=== PATIENT | female | born 1940 | race Caucasian/White ===

== ENCOUNTER → 2023-03-28 11:47 | Outpatient (REF) | payer MEDICARE, OTHER, SELFPAY ==
[2023-03-28 13:14] LABS: % Basophils 0.5 % (0-2); % Immature Granulocytes 0.3 % (0-0.5); % Lymphocytes 26.1 % (20.5-51.1); % Monocytes 7.6 % (1.7-9.3); % Neutrophils 61.5 % (42.2-75.2); Absolute Eosinophils 0.2 10^3/uL (0-0.7); Absolute Lymphocytes 1.6 10^3/uL (1.2-3.4); Absolute Monocytes 0.5 10^3/uL (0.1-0.6); Absolute Neutrophils 3.7 10^3/uL (1.4-6.5); Hematocrit 36.4 % (37.0-47.0); Hemoglobin 11.7 g/dL (12.0-16.0); Mean Corp Hgb Conc. 32.1 g/dL (33.0-37.0); Mean Corpuscular Hgb 31.4 pg (27.0-31.0); Mean Corpuscular Volume 97.6 fL (81.0-99.0); Nucleated Red Blood Cells % 0 %; Platelet Count 170 10^3/uL (130-400); Red Blood Cell Count 3.73 10^6/uL (4.20-5.40); Red Cell Dist. Width 13.2 % (11.5-14.5); White Blood Cell Count 6.1 10^3/uL (4.8-10.8)
[2023-03-28 13:16] LABS: Microalbumin, Random Urine <0.6 mg/dl (0.6-1.7)
[2023-03-28 13:23] LABS: ALT (SGPT) 15 U/L (0-35); AST (SGOT) 24 U/L (14-36); Albumin 3.4 g/dl (3.5-5.0); Alkaline Phosphatase 78 U/L (38-126); Blood Urea Nitrogen 21 mg/dl (7-17); Calcium 9.3 mg/dl (8.4-10.2); Carbon Dioxide 28 mmol/L (22-30); Chloride 103 mmol/L (98-107); Glucose 122 mg/dl (70-99); HDL Cholesterol 44 mg/dl; Iron 88 ug/dl (37-170); LDL Cholesterol, Calculated 77 mg/dl; Potassium 4.2 mmol/L (3.5-5.1); Sodium 139 mmol/L (135-145); Total Bilirubin 0.6 mg/dl (0.2-1.3); Total Cholesterol 158 mg/dl (50-199); Total Protein 5.7 g/dl (6.3-8.2); Triglyceride 188 mg/dl (10-149); Very Low Density Lipoprotein 37 mg/dl (0-30); eGFR 50.17
[2023-03-28 13:35] LABS: Percent Saturation 27 % (20-50); Total Iron Binding Capacity 315 ug/dl (265-497)
[2023-03-28 13:54] LABS: TSH Reflex To Free T4 1.51 uIU/ml (0.47-4.68)
[2023-03-29 09:14] LABS: Intact PTH 98.9 pg/ml (13.6-85.8)
== END ==
LOC: OLABPV 11:47
PROVIDERS: ATTENDING PHYSICIAN Internal Medicine Rheumatology; FAMILY PHYSICIAN Internal Medicine
DX: D64.9 Anemia, unspecified (principal); M06.00 Rheumatoid arthritis without rheumatoid factor, unspecified site; E11.69 Type 2 diabetes mellitus with other specified complication; N25.81 Secondary hyperparathyroidism of renal origin; E78.00 Pure hypercholesterolemia, unspecified; E03.9 Hypothyroidism, unspecified
CPT/HCPCS: 36415; 80053; 80061; 82043; 82570; 82728; 83036; 83540; 83550; 83970; 84443; 85025

== ENCOUNTER 2023-04-04 10:42 | Emergency (ER) | payer MEDICARE, OTHER, SELFPAY ==
[2023-04-04 10:45] VITALS: BP 143/68
--- NOTE | 2023-04-04 12:15 | ED.GENMED ---
History of Present Illness
General
Chief Complaint: Back Pain
Source: patient
Time Seen by Provider: 04/04/23 12:02
Travel History
Have you had any contact with someone who has COVID-19?: No
Do you have any symptoms of coronavirus? Fever > 100 degrees, chills, cough, shortness of breath, sore throat, loss of taste or smell, muscle aches, or headache?: No
History of Present Illness
History of Present Illness:
82-year-old female insulin-dependent diabetic presents with 3 to 4 days worth of worsening lower back pain that radiates down the right leg. No associated bowel or bladder dysfunction. No fever. No perianal anesthesia. She has a history of a
laminectomy at an unknown level she estimates about 15 years ago which was done in [facility]. No other complaints at this time.
Phy Exam
Physical Exam
Physical Exam:
General: Well-appearing female no acute respiratory distress
HEENT: Normocephalic atraumatic neck is supple heart: Regular rate and rhythm no murmurs
Lungs: Clear to auscultation bilaterally no wheezing
Musculoskeletal exam: Mild tenderness to the right paraspinous area of the lumbar spine good range of motion bilateral lower extremities
Vascular: 2+ dorsalis pedis pulse bilateral feet
Neurologic: Bilateral patellar reflexes 2+. Negative straight leg raise bilaterally good strength to lower extremities. Good sensation lower extremities
Course
Orders/Labs/Results
Orders:
Orders
04/04/23 12:15
CR Lumbar Spine 2 Or 3 Views Urgent
Comment:
Reason For Exam: back pain
04/04/23 14:03
PT Consult [Pt Eval And Treat] Urgent
Activity Level: Ambulate
Vital Signs
Initial and Last Documented VS:
Initial Vital Signs
Temp Pulse Resp BP Pulse Ox
97.9 F 72 18 143/68 95
04/04/23 10:45 04/04/23 10:45 04/04/23 10:45 04/04/23 10:45 04/04/23 10:45
Last Documented Vital Signs
Temp Pulse Resp BP Pulse Ox
97.9 F 72 18 143/68 95
04/04/23 10:45 04/04/23 10:45 04/04/23 10:45 04/04/23 10:45 04/04/23 10:45
MDM/Problems Addressed
Differential Diagnosis Includes:
Low back pain with right leg pain. Consider degenerative disc disease versus radiculopathy. No fever to suggest infectious source. Does not seem to be a vascular issue
Check x-rays of the lumbar spine given age. Will plan on potentially starting on anti-inflammatories and/or pain medicine with physiatry follow-up
*Critical Care Note
Total Time (30-74mins, 75-104mins- exclusive of procedures): Not Applicable
Update Note
Update Note:
X-rays show multiple compression deformities of uncertain age. Spoke with patient's daughter who is a vascular surgeon in [place]. Suspect radiculopathy. Patient evaluated by physical therapy and did well. She is independent at [place] but
still is able to function independently per physical therapy. Recommend follow-up with Dr. Gaviria from orthopedics for further evaluation
ED Attending Note
-
Portions of this chart may have been created with voice recognition software.� Occasional wrong word or��sound alike� substitutions may have occurred due to the inherent limitations of voice recognition software.
Discharge Plan
Departure
Patient Disposition: Home (Routine Discharge)
Date of Disposition: 04/04/23
Time of Disposition: 14:55
Patient with high blood pressure during this ER visit?: No
Discharge Problem:
Acute lumbar radiculopathy
Instructions: Low Back Pain (DC)
Prescriptions:
No Action
levothyroxine 100 MCG tablet
100 mcg PO DAILY
cetirizine 10 MG tablet
10 mg PO DAILY Qty: 0 0RF
pantoprazole 40 MG tablet,delayed release (DR/EC)
40 mg PO DAILY
Caltrate 600 plus D 1 EACH tablet,chewable
1 tab PO BID
Patient Comments:
600/400
cholecalciferol (vitamin D3) 2,000 UNIT tablet
1,000 unit PO DAILY
cyanocobalamin (vitamin B-12) 1,000 MCG capsule
1,000 mcg PO QPM
atorvastatin 80 mg tablet
80 mg PO QPM
carvedilol 25 mg tablet
25 mg PO BID
leflunomide 10 mg tablet
10 mg PO DAILY
aspirin 81 mg tablet,chewable
81 mg PO QPM
insulin glargine [Lantus Solostar U-100 Insulin] 100 unit/mL (3 mL) insulin pen
12 unit SC HS
Prolia 60 mg/mL Syringe
60 mg SC [id number]
Arnuity Ellipta 100 mcg/actuation blister with device
1 inh INHALATION R DAILY
Trulicity 0.75 mg/0.5 mL pen injector
0.75 mg SC SA
Folate
1 mg PO DAILY
fluoxetine 20 MG capsule
20 mg PO QPM
clopidogrel [Plavix] 75 mg Tablet
75 mg PO DAILY
glipizide 5 mg Tablet
5 mg PO BID
ferrous sulfate 134 mg (27 mg iron) Tablet
134 mg PO DAILY
Cozaar
100 mg PO DAILY
Referrals:
Telly Gaviria DO [Non-Admitting Privileges] -
Billie Restrepo MD [Family Provider] -
Activity Restrictions/Additional Instructions:
Continue with ibuprofen if needed for pain. Follow-up with orthopedics. Return if worse otherwise. Use walker for support when ambulating
Interventions
Interventions:
*Risk Screen - Suicide Last Done: 04/04/23 10:45
*General Assessment Last Done: 04/04/23 10:45
*Neglect/Abuse Screening Last Done: 04/04/23 10:45
*ED COVID-19 Vaccine History Last Done: 04/04/23 10:45
ED-Musculoskeletal Assessment Last Done: 04/04/23 11:19
[2023-04-04 15:17] VITALS: BP 152/77
== END 2023-04-04 15:20 | disposition home or self-care (01) ==
LOC: EMR 10:42
PROVIDERS: EMERGENCY PHYSICIAN Emergency Medicine; FAMILY PHYSICIAN Family Medicine
DX: M47.26 Other spondylosis with radiculopathy, lumbar region (principal); M79.604 Pain in right leg; E11.9 Type 2 diabetes mellitus without complications; Z79.4 Long term (current) use of insulin; Z79.82 Long term (current) use of aspirin; Z79.02 Long term (current) use of antithrombotics/antiplatelets; Z88.8 Allergy status to other drugs, medicaments and biological substances
CPT/HCPCS: 99283; 72100

== ENCOUNTER → 2023-05-15 11:55 | Outpatient (REF) | payer MEDICARE, OTHER, SELFPAY | LOC: MRI 11:55 | PROVIDERS: ATTENDING PHYSICIAN Physical Medicine & Rehabilitation; FAMILY PHYSICIAN Family Medicine; REFERRING PHYSICIAN Radiology Diagnostic Radiology | DX: M54.16 Radiculopathy, lumbar region (principal); Z18.10 Retained metal fragments, unspecified | CPT/HCPCS: 71046; 72148 ==

== ENCOUNTER → 2023-05-28 14:31 | Outpatient (REF) | payer MEDICARE, OTHER, SELFPAY | LOC: WDC 14:31 | PROVIDERS: ATTENDING PHYSICIAN Internal Medicine | DX: Z12.31 Encounter for screening mammogram for malignant neoplasm of breast (principal) | CPT/HCPCS: 77063; 77067 ==

== ENCOUNTER → 2023-07-16 09:28 | Outpatient (REF) | payer MEDICARE, OTHER, SELFPAY ==
[2023-07-16 10:53] LABS: % Basophils 0.6 % (0-2); % Eosinophils 5.7 % (0-6); % Immature Granulocytes 0.2 % (0-0.5); % Lymphocytes 32.7 % (20.5-51.1); % Monocytes 8.4 % (1.7-9.3); % Neutrophils 52.4 % (42.2-75.2); Absolute Eosinophils 0.3 10^3/uL (0-0.7); Absolute Lymphocytes 1.7 10^3/uL (1.2-3.4); Absolute Monocytes 0.4 10^3/uL (0.1-0.6); Absolute Neutrophils 2.8 10^3/uL (1.4-6.5); Hematocrit 33.7 % (37.0-47.0); Hemoglobin 10.7 g/dL (12.0-16.0); Mean Corp Hgb Conc. 31.8 g/dL (33.0-37.0); Mean Corpuscular Hgb 30.8 pg (27.0-31.0); Mean Corpuscular Volume 97.1 fL (81.0-99.0); Mean Platelet Volume 11.5 fL (7.4-10.4); Nucleated Red Blood Cells % 0 %; Platelet Count 170 10^3/uL (130-400); Red Blood Cell Count 3.47 10^6/uL (4.20-5.40); Red Cell Dist. Width 13.6 % (11.5-14.5); White Blood Cell Count 5.3 10^3/uL (4.8-10.8)
[2023-07-16 12:40] LABS: ALT (SGPT) 17 U/L (0-35); AST (SGOT) 25 U/L (14-36); Albumin 3.4 g/dl (3.5-5.0); Alkaline Phosphatase 83 U/L (38-126); Blood Urea Nitrogen 16 mg/dl (7-17); Calcium 9.2 mg/dl (8.4-10.2); Carbon Dioxide 26 mmol/L (22-30); Chloride 109 mmol/L (98-107); Glucose 103 mg/dl (70-99); Potassium 4.3 mmol/L (3.5-5.1); Sodium 141 mmol/L (135-145); Total Bilirubin 0.3 mg/dl (0.2-1.3); Total Protein 5.7 g/dl (6.3-8.2); Uric Acid 4.9 mg/dl (2.5-6.2); eGFR 50.17
[2023-07-16 12:44] LABS: C-Reactive Protein < 5.00 mg/L (0.0-10.00)
[2023-07-16 13:01] LABS: Vitamin D, 25-OH*** 42.7 ng/mL (30-80)
== END ==
LOC: OLABPV 09:28
PROVIDERS: ATTENDING PHYSICIAN Internal Medicine Rheumatology; FAMILY PHYSICIAN Family Medicine
DX: D64.9 Anemia, unspecified (principal); E55.9 Vitamin D deficiency, unspecified; M06.00 Rheumatoid arthritis without rheumatoid factor, unspecified site; M10.9 Gout, unspecified; M19.93 Secondary osteoarthritis, unspecified site; M79.641 Pain in right hand; M81.0 Age-related osteoporosis without current pathological fracture; N25.81 Secondary hyperparathyroidism of renal origin; Z68.30 Body mass index [BMI] 30.0-30.9, adult; Z79.899 Other long term (current) drug therapy
CPT/HCPCS: 36415; 80053; 82306; 84550; 85025; 86140

== ENCOUNTER → 2023-09-05 11:20 | Outpatient (REF) | payer MEDICARE, OTHER, SELFPAY ==
[2023-09-05 12:35] LABS: % Basophils 0.7 % (0-2); % Eosinophils 4.6 % (0-6); % Immature Granulocytes 0.5 % (0-0.5); % Lymphocytes 23.8 % (20.5-51.1); % Monocytes 8.5 % (1.7-9.3); % Neutrophils 61.9 % (42.2-75.2); Absolute Eosinophils 0.3 10^3/uL (0-0.7); Absolute Lymphocytes 1.5 10^3/uL (1.2-3.4); Absolute Monocytes 0.5 10^3/uL (0.1-0.6); Absolute Neutrophils 3.8 10^3/uL (1.4-6.5); Hemoglobin 9.7 g/dL (12.0-16.0); Mean Corp Hgb Conc. 32.3 g/dL (33.0-37.0); Mean Corpuscular Hgb 31.1 pg (27.0-31.0); Mean Corpuscular Volume 96.2 fL (81.0-99.0); Nucleated Red Blood Cells % 0 %; Platelet Count 193 10^3/uL (130-400); Red Blood Cell Count 3.12 10^6/uL (4.20-5.40); White Blood Cell Count 6.1 10^3/uL (4.8-10.8)
[2023-09-05 12:50] LABS: Blood Urea Nitrogen 27 mg/dl (7-17); Calcium 9.2 mg/dl (8.4-10.2); Carbon Dioxide 25 mmol/L (22-30); Chloride 106 mmol/L (98-107); Glucose 154 mg/dl (70-99); Iron 89 ug/dl (37-170); Potassium 4.5 mmol/L (3.5-5.1); Sodium 137 mmol/L (135-145); eGFR 49.86
[2023-09-05 13:00] LABS: Percent Saturation 26 % (20-50); Total Iron Binding Capacity 342 ug/dl (265-497)
[2023-09-06 10:20] LABS: Glycohemoglobin (HgbA1c) 6.5 % (4.0-5.6)
== END ==
LOC: OLABPV 11:20
PROVIDERS: ATTENDING PHYSICIAN Internal Medicine Rheumatology
DX: D64.9 Anemia, unspecified (principal); E55.9 Vitamin D deficiency, unspecified; M06.00 Rheumatoid arthritis without rheumatoid factor, unspecified site; M10.9 Gout, unspecified; M19.93 Secondary osteoarthritis, unspecified site; M79.641 Pain in right hand; M81.0 Age-related osteoporosis without current pathological fracture; N25.81 Secondary hyperparathyroidism of renal origin; Z79.899 Other long term (current) drug therapy
CPT/HCPCS: 80048; 82728; 83036; 83540; 83550; 85025

== ENCOUNTER → 2023-09-30 11:21 | Outpatient (REF) | payer MEDICARE, OTHER, SELFPAY | LOC: DHCBC/DCA 11:21 | PROVIDERS: ATTENDING PHYSICIAN Internal Medicine Cardiovascular Disease; FAMILY PHYSICIAN Family Medicine | DX: R06.02 Shortness of breath (principal) | CPT/HCPCS: 78452; 93017; A9500; J2785 ==

== ENCOUNTER → 2023-10-17 10:54 | Outpatient (REF) | payer MEDICARE, OTHER, SELFPAY ==
[2023-10-17 11:33] LABS: % Basophils 0.6 % (0-2); % Eosinophils 4.7 % (0-6); % Immature Granulocytes 0.3 % (0-0.5); % Lymphocytes 26.3 % (20.5-51.1); % Monocytes 9.2 % (1.7-9.3); % Neutrophils 58.9 % (42.2-75.2); Absolute Eosinophils 0.3 10^3/uL (0-0.7); Absolute Lymphocytes 1.6 10^3/uL (1.2-3.4); Absolute Monocytes 0.6 10^3/uL (0.1-0.6); Absolute Neutrophils 3.6 10^3/uL (1.4-6.5); Hemoglobin 10.8 g/dL (12.0-16.0); Mean Corp Hgb Conc. 31.8 g/dL (33.0-37.0); Mean Corpuscular Hgb 30.8 pg (27.0-31.0); Mean Corpuscular Volume 96.9 fL (81.0-99.0); Mean Platelet Volume 11.3 fL (7.4-10.4); Nucleated Red Blood Cells % 0 %; Platelet Count 184 10^3/uL (130-400); Red Blood Cell Count 3.51 10^6/uL (4.20-5.40); Red Cell Dist. Width 14.6 % (11.5-14.5); White Blood Cell Count 6.2 10^3/uL (4.8-10.8)
[2023-10-17 11:43] LABS: Iron 56 ug/dl (37-170)
[2023-10-17 12:14] LABS: TSH 0.69 uIU/ml (0.47-4.68)
[2023-10-17 12:18] LABS: Ferritin 21.2 ng/ml (11.1-264.0)
[2023-10-17 12:20] LABS: Microalbumin, Random Urine 1.9 mg/dl (0.6-1.7)
== END ==
LOC: OLABPV 10:54
PROVIDERS: ATTENDING PHYSICIAN Family Medicine
DX: D64.9 Anemia, unspecified (principal); E11.9 Type 2 diabetes mellitus without complications
CPT/HCPCS: 36415; 82043; 82570; 82728; 83540; 84443; 85025

== ENCOUNTER → 2023-10-30 13:19 | Outpatient (REF) | payer MEDICARE, OTHER, SELFPAY | LOC: RCS 13:19 | PROVIDERS: ATTENDING PHYSICIAN Nurse Practitioner; FAMILY PHYSICIAN Internal Medicine Geriatric Medicine | DX: I25.10 Atherosclerotic heart disease of native coronary artery without angina pectoris (principal); R01.1 Cardiac murmur, unspecified; I10 Essential (primary) hypertension | CPT/HCPCS: 93306 ==

== ENCOUNTER → 2023-11-11 10:21 | Outpatient (REF) | payer MEDICARE, OTHER, SELFPAY ==
[2023-11-11 11:47] LABS: % Basophils 0.5 % (0-2); % Eosinophils 5.4 % (0-6); % Immature Granulocytes 0.2 % (0-0.5); % Monocytes 10.3 % (1.7-9.3); % Neutrophils 48.6 % (42.2-75.2); Absolute Eosinophils 0.3 10^3/uL (0-0.7); Absolute Monocytes 0.6 10^3/uL (0.1-0.6); Absolute Neutrophils 2.8 10^3/uL (1.4-6.5); Hematocrit 35.3 % (37.0-47.0); Hemoglobin 11.4 g/dL (12.0-16.0); Mean Corp Hgb Conc. 32.3 g/dL (33.0-37.0); Mean Corpuscular Hgb 30.2 pg (27.0-31.0); Mean Corpuscular Volume 93.6 fL (81.0-99.0); Mean Platelet Volume 11.5 fL (7.4-10.4); Nucleated Red Blood Cells % 0 %; Platelet Count 160 10^3/uL (130-400); Red Blood Cell Count 3.77 10^6/uL (4.20-5.40); Red Cell Dist. Width 13.5 % (11.5-14.5); White Blood Cell Count 5.8 10^3/uL (4.8-10.8)
[2023-11-11 13:05] LABS: ALT (SGPT) 18 U/L (0-35); AST (SGOT) 24 U/L (14-36); Albumin 3.7 g/dl (3.5-5.0); Alkaline Phosphatase 103 U/L (38-126); Blood Urea Nitrogen 20 mg/dl (7-17); Calcium 9.3 mg/dl (8.4-10.2); Carbon Dioxide 23 mmol/L (22-30); Chloride 108 mmol/L (98-107); Glucose 173 mg/dl (70-99); Sodium 142 mmol/L (135-145); Total Bilirubin 0.3 mg/dl (0.2-1.3); Total Protein 5.9 g/dl (6.3-8.2)
== END ==
LOC: OLABPV 10:21
PROVIDERS: ATTENDING PHYSICIAN Dentist Oral and Maxillofacial Surgery; FAMILY PHYSICIAN Family Medicine; REFERRING PHYSICIAN Internal Medicine Rheumatology
DX: M87.180 Osteonecrosis due to drugs, jaw (principal); D64.9 Anemia, unspecified; E55.9 Vitamin D deficiency, unspecified; M06.00 Rheumatoid arthritis without rheumatoid factor, unspecified site; M10.9 Gout, unspecified; M19.93 Secondary osteoarthritis, unspecified site; M79.641 Pain in right hand; M81.0 Age-related osteoporosis without current pathological fracture; N25.81 Secondary hyperparathyroidism of renal origin; Z79.899 Other long term (current) drug therapy
CPT/HCPCS: 36415; 70486; 80053; 84550; 85025; 86140

== ENCOUNTER → 2023-11-21 12:21 | Outpatient (REF) | payer MEDICARE, OTHER, SELFPAY ==
[2023-11-21 13:18] LABS: % Basophils 0.9 % (0-2); % Eosinophils 5.7 % (0-6); % Immature Granulocytes 0.4 % (0-0.5); % Lymphocytes 28.5 % (20.5-51.1); % Monocytes 10.5 % (1.7-9.3); Absolute Basophils 0.1 10^3/uL (0-0.2); Absolute Eosinophils 0.3 10^3/uL (0-0.7); Absolute Lymphocytes 1.5 10^3/uL (1.2-3.4); Absolute Monocytes 0.6 10^3/uL (0.1-0.6); Absolute Neutrophils 2.9 10^3/uL (1.4-6.5); Hematocrit 32.9 % (37.0-47.0); Hemoglobin 10.5 g/dL (12.0-16.0); Mean Corp Hgb Conc. 31.9 g/dL (33.0-37.0); Mean Corpuscular Hgb 28.6 pg (27.0-31.0); Mean Corpuscular Volume 89.6 fL (81.0-99.0); Mean Platelet Volume 11.1 fL (7.4-10.4); Nucleated Red Blood Cells % 0 %; Platelet Count 165 10^3/uL (130-400); Red Blood Cell Count 3.67 10^6/uL (4.20-5.40); Red Cell Dist. Width 13.5 % (11.5-14.5); White Blood Cell Count 5.4 10^3/uL (4.8-10.8)
[2023-11-21 13:36] LABS: ALT (SGPT) 14 U/L (0-35); AST (SGOT) 21 U/L (14-36); Albumin 3.4 g/dl (3.5-5.0); Alkaline Phosphatase 97 U/L (38-126); Blood Urea Nitrogen 20 mg/dl (7-17); Calcium 9.2 mg/dl (8.4-10.2); Carbon Dioxide 23 mmol/L (22-30); Chloride 107 mmol/L (98-107); Glucose 147 mg/dl (70-99); HDL Cholesterol 38 mg/dl; Iron 53 ug/dl (37-170); LDL Cholesterol, Calculated 73 mg/dl; Potassium 4.6 mmol/L (3.5-5.1); Sodium 142 mmol/L (135-145); Total Bilirubin 0.1 mg/dl (0.2-1.3); Total Cholesterol 140 mg/dl (50-199); Total Protein 5.7 g/dl (6.3-8.2); Triglyceride 145 mg/dl (10-149); Very Low Density Lipoprotein 29 mg/dl (0-30)
[2023-11-21 13:40] LABS: Urine Albumin Negative (Neg - Trace); Urine Bilirubin Negative (Negative); Urine Character Clear (Clear); Urine Color Yellow; Urine Glucose Negative (Negative); Urine Ketone Negative (Negative); Urine Leukocyte 2+ (Negative); Urine Nitrite Negative (Negative); Urine Occult Blood Negative (Negative); Urine Urobilinogen Negative (Neg - 1+)
[2023-11-21 13:45] LABS: Percent Saturation 15 % (20-50); Total Iron Binding Capacity 344 ug/dl (265-497)
[2023-11-21 13:51] LABS: Vitamin D, 25-OH*** 39.6 ng/mL (30-80)
[2023-11-21 14:04] LABS: TSH 0.91 uIU/ml (0.47-4.68)
[2023-11-21 14:08] LABS: Ferritin 17.2 ng/ml (11.1-264.0)
[2023-11-21 14:13] LABS: Urine Squamous Cell >30 /LPF (Few)
[2023-11-21 14:14] LABS: Urine White Cell 70-80 /HPF (0-5)
[2023-11-21 14:15] LABS: Urine Bacteria Moderate (Negative)
[2023-11-21 14:16] LABS: Urine Red Blood Cell None Seen /HPF (0-2)
[2023-11-22 10:14] LABS: Glycohemoglobin (HgbA1c) 7.8 % (4.0-5.6)
[2023-11-24 00:31] LABS: C-Peptide 1.5 ng/mL (0.5-3.3)
== END ==
LOC: OLABPV 12:21
PROVIDERS: ATTENDING PHYSICIAN Internal Medicine Geriatric Medicine
DX: Z76.89 Persons encountering health services in other specified circumstances (principal); F33.41 Major depressive disorder, recurrent, in partial remission; E03.9 Hypothyroidism, unspecified; E11.65 Type 2 diabetes mellitus with hyperglycemia; E61.1 Iron deficiency; M81.0 Age-related osteoporosis without current pathological fracture; Z79.4 Long term (current) use of insulin; K21.9 Gastro-esophageal reflux disease without esophagitis; M06.042 Rheumatoid arthritis without rheumatoid factor, left hand; I25.10 Atherosclerotic heart disease of native coronary artery without angina pectoris; Z13.31 Encounter for screening for depression
CPT/HCPCS: 36415; 80053; 80061; 81003; 81015; 82306; 82728; 83036; 83540; 83550; 84443; 84681; 85025

== ENCOUNTER → 2023-12-19 08:37 | Outpatient (REF) | payer MEDICARE, OTHER, SELFPAY | LOC: RAD 08:37 | PROVIDERS: ATTENDING PHYSICIAN Internal Medicine Rheumatology; FAMILY PHYSICIAN Internal Medicine Geriatric Medicine | DX: M81.0 Age-related osteoporosis without current pathological fracture (principal); Z13.820 Encounter for screening for osteoporosis | CPT/HCPCS: 77080 ==

== ENCOUNTER 2023-12-28 17:13 | Inpatient (IN) | payer MEDICARE, OTHER, SELFPAY ==
[2023-12-28 10:42] VITALS: BP 159/75
[2023-12-28 11:03] VITALS: BP 158/77
--- NOTE | 2023-12-28 11:06 | W.PN.UPDATE ---
Update Note
Progress Note Update
Daughter, a vascular surgeon in [facility], called with information about patient. She had total hip w. Dr. Thomson 10 yrs ago, doing well, developed jaw infection pending debridement and has started having pain in her CHRISTIANA. Concern is for hip infection.
I believe pt will be coming to ER today. I would start out by ordering sed rate, crp, full set of labs, type and screen and then likely set patient up for aspiration of the affected hip by IR.
Please withhold any antibiotics until aspiration is performed to maximize culture. Pt may eat today while workup done but should be NPO p mn in the event surgery indicated.
Daughter's phone number is [phone]
[2023-12-28 11:40] LABS: % Basophils 0.7 % (0-2); % Eosinophils 5.9 % (0-6); % Immature Granulocytes 0.4 % (0-0.5); % Lymphocytes 18.3 % (20.5-51.1); % Neutrophils 67.7 % (42.2-75.2); Absolute Basophils 0.1 10^3/uL (0-0.2); Absolute Eosinophils 0.4 10^3/uL (0-0.7); Absolute Lymphocytes 1.3 10^3/uL (1.2-3.4); Absolute Monocytes 0.5 10^3/uL (0.1-0.6); Absolute Neutrophils 4.8 10^3/uL (1.4-6.5); Hematocrit 39.7 % (37.0-47.0); Hemoglobin 12.8 g/dL (12.0-16.0); Mean Corp Hgb Conc. 32.2 g/dL (33.0-37.0); Mean Corpuscular Hgb 29.7 pg (27.0-31.0); Mean Corpuscular Volume 92.1 fL (81.0-99.0); Mean Platelet Volume 11.6 fL (7.4-10.4); Nucleated Red Blood Cells % 0 %; Platelet Count 156 10^3/uL (130-400); Red Blood Cell Count 4.31 10^6/uL (4.20-5.40); Red Cell Dist. Width 15.1 % (11.5-14.5); White Blood Cell Count 7.1 10^3/uL (4.8-10.8)
[2023-12-28 11:54] LABS: ALT (SGPT) 19 U/L (0-35); AST (SGOT) 27 U/L (14-36); Albumin 4.1 g/dl (3.5-5.0); Alkaline Phosphatase 102 U/L (38-126); Blood Urea Nitrogen 20 mg/dl (7-17); Calcium 9.9 mg/dl (8.4-10.2); Carbon Dioxide 25 mmol/L (22-30); Chloride 104 mmol/L (98-107); Glucose 252 mg/dl (70-99); Potassium 4.9 mmol/L (3.5-5.1); Sodium 140 mmol/L (135-145); Total Bilirubin 0.5 mg/dl (0.2-1.3); Total Protein 6.6 g/dl (6.3-8.2); eGFR 49.86
[2023-12-28 11:57] LABS: C-Reactive Protein < 5.00 mg/L (0.0-10.00)
[2023-12-28 12:58] LABS: Erythrocyte Sed Rate 30 mm/hour (0-20)
[2023-12-28] MEDS: MORPHINE SULFATE 4 MG IV (13:03)
[2023-12-28 14:53] VITALS: BP 122/78
--- NOTE | 2023-12-28 15:59 | ED.GENMED ---
History of Present Illness
General
Chief Complaint: Extremity Pain (non-traumatic)
Time Seen by Provider: 12/28/23 11:21
History of Present Illness
History of Present Illness:
83-year-old female presents the emergency department for evaluation of right hip pain. She has had this pain intermittently for the past 3 weeks but over the past day it became 'excruciating'. She is unable to bear weight on the right leg over the
past day. She has a history of a total hip replacement performed approximately 10 years ago, daughter notes that she has recently been dealing with dental infections and has been on antibiotics and they are concerned for prosthetic hip infection.
She communicated with orthopedics and was directed to come to the emergency department for workup. No fevers or night sweats
Review of Systems
Review of Systems
Allergies reviewed?: Yes
All Other Systems: ROS reviewed and negative except as documented in HPI and ROS
Phy Exam
Physical Exam
Physical Exam:
GEN: Well appearing, NAD, WDWN
HEENT: Oral mucosa moist, no scleral icterus
Cardiac: Regular rate
Lung: No respiratory distress, no tachypnea
MSK: No gross deformity or injuries. Right hip range of motion is normal with no pain on passive range of motion.
Skin: Good color, no pallor or jaundice, no rashes
Neuro: AO x3, moves all extremities freely
Psych: Calm, cooperative
Course
Orders/Labs/Results
Orders:
Orders
12/28/23 11:23
CR Hip - RT w/wo Pel 2-3 Vw* Urgent
Comment:
Reason For Exam: R hip pain
Include a pelvis x-ray?: No
12/28/23 11:31
CRP [C-Reactive Protein] Urgent
Complete Blood Count/With Diff Urgent
Comprehensive Metabolic Panel Urgent
ESR [Erythrocyte Sed Rate] Urgent
12/28/23 12:54
Morphine Sulfate 4 mg IV NOW STA
12/28/23 13:38
CT Lower Ext W/iv Cont Rt Urgent
Comment:
Reason For Exam: right hip pain poss infection
Abnormal Lab Results
12/28/23
11:31
MCHC 32.2 L g/dL
(33.0-37.0)
RDW 15.1 H %
(11.5-14.5)
MPV 11.6 H fL
(7.4-10.4)
Lymphocytes % 18.3 L %
(20.5-51.1)
ESR 30 H mm/hour
(0-20)
BUN 20 H mg/dl
(7-17)
Creatinine 1.1 H mg/dL
(0.6-1.0)
Glucose 252 H mg/dl
(70-99)
12/28/23 11:31
12/28/23 11:31
Vital Signs
Initial and Last Documented VS:
Initial Vital Signs
Temp Pulse Resp BP Pulse Ox
97.5 F 85 18 159/75 94
12/28/23 10:42 12/28/23 10:42 12/28/23 10:42 12/28/23 10:42 12/28/23 10:42
Last Documented Vital Signs
Temp Pulse Resp BP Pulse Ox
97.5 F 78 18 122/78 97
12/28/23 10:42 12/28/23 14:53 12/28/23 14:53 12/28/23 14:53 12/28/23 14:53
MDM/Problems Addressed
MDM/Problems Addressed:
Patient's workup for potential septic hip prosthesis is reassuring with negative inflammatory markers and CT showing no synovial thickening. Case reviewed with orthopedics who agrees there is no indication for IR aspiration at this time. Discussed
with patient and her daughter over the phone, concern for patient's safety given her pain and difficulty with ambulation given that she lives alone, will admit for observation and consideration of SNF placement
*Critical Care Note
Total Time (30-74mins, 75-104mins- exclusive of procedures): Not Applicable
ED Attending Note
-
Portions of this chart may have been created with voice recognition software.� Occasional wrong word or��sound alike� substitutions may have occurred due to the inherent limitations of voice recognition software.
Discharge Plan
Departure
Patient Disposition: Admit
Date of Disposition: 12/28/23
Time of Disposition: 16:06
Admit to: Med/Surg
Presentation/result/management discussed w/ accepting MD/DO: Hospitalist
Discharge Problem:
Ambulatory dysfunction, Lumbar radiculopathy, acute
Prescriptions:
No Action
levothyroxine 100 MCG tablet
100 mcg PO DAILY
cetirizine 10 MG tablet
10 mg PO DAILY Qty: 0 0RF
pantoprazole 40 MG tablet,delayed release (DR/EC)
40 mg PO DAILY
Caltrate 600 plus D 1 EACH tablet,chewable
1 tab PO BID
Patient Comments:
600/400
cholecalciferol (vitamin D3) 2,000 UNIT tablet
1,000 unit PO DAILY
cyanocobalamin (vitamin B-12) 1,000 MCG capsule
1,000 mcg PO QPM
atorvastatin 80 mg tablet
80 mg PO QPM
carvedilol 25 mg tablet
25 mg PO BID
leflunomide 10 mg tablet
10 mg PO DAILY
aspirin 81 mg tablet,chewable
81 mg PO QPM
insulin glargine [Lantus Solostar U-100 Insulin] 100 unit/mL (3 mL) insulin pen
12 unit SC HS
Prolia 60 mg/mL Syringe
60 mg SC [id number]
Arnuity Ellipta 100 mcg/actuation blister with device
1 inh INHALATION R DAILY
Trulicity 0.75 mg/0.5 mL pen injector
0.75 mg SC SA
Folate
1 mg PO DAILY
fluoxetine 20 MG capsule
20 mg PO QPM
clopidogrel [Plavix] 75 mg Tablet
75 mg PO DAILY
glipizide 5 mg Tablet
5 mg PO BID
ferrous sulfate 134 mg (27 mg iron) Tablet
134 mg PO DAILY
Cozaar
100 mg PO DAILY
Referrals:
Abdoulaye Mireles MD [Family Provider] -
Interventions
Interventions:
*Risk Screen - Suicide Last Done: 12/28/23 10:42
*General Assessment Last Done: 12/28/23 11:14
*Neglect/Abuse Screening Last Done: 12/28/23 10:42
ED- Fall Risk Assessment Last Done: 12/28/23 11:14
ED-Musculoskeletal Assessment Last Done: 12/28/23 11:14
Discharge Date and Time
Print Language: FRISIAN
--- NOTE | 2023-12-28 16:29 | HPS.HSE ---
Family Physician
-
Family Physician: Abdoulaye Mireles
Chief Complaint
-
Right hip pain
History of Present Illness
83-year-old female with a past medical history of iron deficiency anemia, coronary artery disease, AV block status post pacemaker, hyperlipidemia, rheumatoid arthritis, GERD, osteopenia, depression, hypothyroidism, and type 2 diabetes presents with
a 3-week history of right hip pain. Patient states that it started hurting only when she stands and walks, and was better initially. Then it worsened yesterday. She also reports associated right lower back pain. She has a history of total hip
replacement 10 years ago. She denies recent injury or trauma. Currently her pain is 0 at rest, 9 out of 10 in intensity with standing or walking. Denies chest pain, shortness of breath, or palpitations. No fever. No abdominal pain. No nausea,
no vomiting. Reports constipation. No dysuria, no hematuria.
Medical History
Past Medical History
Past Medical History: Reports Other (iron deficiency anemia, coronary artery disease, AV block status post pacemaker, hyperlipidemia, rheumatoid arthritis, GERD, osteopenia, depression, hypothyroidism, type 2 diabetes, TIA )
Past Surgical History: Reports Appendectomy, Cholecystectomy and Other (Bilateral hip replacement, right shoulder replacement, pacer)
Social History
Tobacco: Non-smoker
Alcohol: Daily (1 drink daily )
Drug: None
Personal:
Living: Alone
Family History
Family History: Not pertinent
Allergies / Home Medications
Allergies reflects when Allergies were last updated in [facility].
Home Medications with original date entered in [facility]
Allergy/Medication List:
Allergies
Allergy/AdvReac Type Severity Reaction Status Date / Time
DRE Inhibitors Allergy coughing Verified 02/22/22 14:44
Home Medications
levothyroxine 100 mcg tablet 100 mcg PO DAILY 04/27/13
cetirizine 10 mg tablet 10 mg PO DAILY ##0 05/20/13
pantoprazole 40 mg tablet,delayed release 40 mg PO DAILY 03/28/14
calcium carbonate 600 mg-vitamin D3 20 mcg (800 unit) chewable tablet (Caltrate 600 plus D) 1 tab PO BID 03/30/15
cholecalciferol (vitamin D3) 50 mcg (2,000 unit) tablet 1,000 unit PO DAILY 10/17/17
clopidogrel 75 mg tablet 75 mg PO QPM 10/17/17
cyanocobalamin (vitamin B-12) 1,000 mcg capsule 1,000 mcg PO QPM 10/17/17
Folate 1 mg PO DAILY 02/22/22
aspirin 81 mg chewable tablet 81 mg PO QPM 02/22/22
atorvastatin 80 mg tablet 80 mg PO QPM 02/22/22
carvedilol 25 mg tablet 25 mg PO BID 02/22/22
denosumab 60 mg/mL subcutaneous syringe (Prolia) 60 mg SC [id number] 02/22/22
dulaglutide 0.75 mg/0.5 mL subcutaneous pen injector (Trulicity) 0.75 mg SC SA 02/22/22
fluoxetine 20 mg capsule 20 mg PO QPM 02/22/22
fluticasone furoate 100 mcg/actuation blister powder for inhalation (Arnuity Ellipta) 1 inh inhalation R DAILY 02/22/22
insulin glargine 100 unit/mL (3 mL) subcutaneous pen (Lantus Solostar U-100 Insulin) 12 unit SC HS 02/22/22
leflunomide 10 mg tablet 10 mg PO DAILY 02/22/22
losartan 100 mg tablet 100 mg PO DAILY 02/22/22
Review of Systems
-
A 12 point ROS was completed and negative except as noted: No
Physical Exam
Vital Signs
Vital Signs
Temp Pulse Resp BP Pulse Ox
97.5 F 78 18 122/78 97
12/28/23 10:42 12/28/23 14:53 12/28/23 14:53 12/28/23 14:53 12/28/23 14:53
Physical Exam
General: No Apparent Distress
HEENT: NormoCephalic, Anicteric and Moist mucous membranes
Respiratory: Clear
Cardiac: S1/S2 and Regular Rhythm
GI: Soft, Non Tender and Non Distended
Musculoskeletal: Other (Right lower back is tender to palpation, right hip is tender to palpation)
Skin: Warm
Neuro: Awake, Alert and Oriented
Psych: Calm
Laboratory Results
-
12/28/23 11:31
12/28/23 11:
Laboratory Results
Total Bilirubin 0.5 mg/dl (0.2-1.3) 12/28/23 11:
AST 27 U/L (14-36) 12/28/23 11:31
ALT 19 U/L (0-35) 12/28/23 11:31
Alkaline Phosphatase 102 U/L (38-126) 12/28/23 11:31
Impression/Plan
-
HPI: 83-year-old female with a past medical history of iron deficiency anemia, coronary artery disease, AV block status post pacemaker, hyperlipidemia, rheumatoid arthritis, GERD, osteopenia, depression, hypothyroidism, and type 2 diabetes presents
with a 3-week history of right hip pain. Patient states that it started hurting only when she stands and walks, and was better initially. Then it worsened yesterday. She also reports associated right lower back pain. She has a history of total
hip replacement 10 years ago. She denies recent injury or trauma. Currently her pain is 0 at rest, 9 out of 10 in intensity with standing or walking. Denies chest pain, shortness of breath, or palpitations. No fever. No abdominal pain. No
nausea, no vomiting. Reports constipation. No dysuria, no hematuria.
#Acute right hip pain
#Acute right lower back pain
#History of right hip arthroplasty
Right lower extremity CT negative for acute abnormality of the right hip
CRP less than 5, ESR 30, normal for age
Discussed with orthopedic surgery, inflammatory markers negative, no need for IR consult for aspiration
Suspect lumbar radiculopathy, check lumbar x-ray
Give Tylenol 1 g 3 times daily, oxycodone as needed, laxatives
Consult orthopedic surgery, PT/OT
#Constipation
Laxatives
#Type 2 diabetes
Continue home glipizide 2.5 mg daily, glargine 14 units every afternoon
Diabetic diet, sliding scale insulin, update hemoglobin A1c
#Hyperlipidemia
Continue statin
#Hypothyroidism
Continue levothyroxine
#Benign essential hypertension
Continue Coreg, losartan
#GERD
Continue PPI
#Osteoporosis
Continue calcium with vitamin D supplements
DVT prophylaxis�subcu Lovenox
DNR
[2023-12-28] MEDS: TYLENOL 1000 MG PO ×2 (16:54→21:54)
[2023-12-28 18:32] VITALS: BP 124/74
[2023-12-28 21:03] VITALS: BP 125/60; BMI 28.5
[2023-12-28] MEDS: LIPITOR 80 MG PO (21:34)
[2023-12-28] MEDS: COZAAR 100 MG PO (21:34)
[2023-12-28] MEDS: MIRALAX 17 GRAMS PO (21:34)
[2023-12-28] MEDS: LOW STRENGTH ASPIRIN 81 MG PO (21:34)
[2023-12-28] MEDS: COREG 25 MG PO (21:34)
[2023-12-28] MEDS: LOVENOX 40 MG SC (21:34)
[2023-12-28] MEDS: OSCAL CAL 500 500 MG PO (21:45)
[2023-12-28] MEDS: SENOKOT-S 2 TABLET PO (21:45)
[2023-12-28 21:57] LABS: Glucose - Point of Care 201 mg/dl (70-99)
[2023-12-28] MEDS: LANTUS 0.14 UNITS SC (22:09)
[2023-12-28] MEDS: VITAMIN D3 (cholecalciferol) 10 MCG PO (22:25)
[2023-12-28 22:52] VITALS: BP 130/67
[2023-12-29] MEDS: SYNTHROID 100 MCG PO (05:24)
[2023-12-29 05:43] LABS: % Basophils 0.7 % (0-2); % Eosinophils 6.2 % (0-6); % Immature Granulocytes 0.4 % (0-0.5); % Neutrophils 51.7 % (42.2-75.2); Absolute Eosinophils 0.4 10^3/uL (0-0.7); Absolute Lymphocytes 1.8 10^3/uL (1.2-3.4); Absolute Monocytes 0.5 10^3/uL (0.1-0.6); Hemoglobin 11.1 g/dL (12.0-16.0); Mean Corp Hgb Conc. 30.8 g/dL (33.0-37.0); Mean Platelet Volume 11.6 fL (7.4-10.4); Nucleated Red Blood Cells % 0 %; Platelet Count 141 10^3/uL (130-400); Red Blood Cell Count 3.83 10^6/uL (4.20-5.40); Red Cell Dist. Width 15.3 % (11.5-14.5); White Blood Cell Count 5.7 10^3/uL (4.8-10.8)
--- NOTE | 2023-12-29 05:43 | PTCARENOTE ---
83-year-old female with a past medical history of iron deficiency anemia, coronary artery disease, AV block status post pacemaker, hyperlipidemia, rheumatoid arthritis, GERD, osteopenia, depression, hypothyroidism, and type 2 diabetes presents with
a 3-week history of right hip pain. Patient states that it started hurting only when she stands and walks, and was better initially. Then it worsened yesterday. She also reports associated right lower back pain. Pt arrived on at 21:00,
pt AOx3, is able to walk with 1 assist, bed in a low position, pt instructed to call if she needs to get up. her call light is in reach.
[2023-12-29 06:07] LABS: Blood Urea Nitrogen 23 mg/dl (7-17); Calcium 9.2 mg/dl (8.4-10.2); Carbon Dioxide 25 mmol/L (22-30); Chloride 107 mmol/L (98-107); Estimated Creatinine Clearance 33 ml/min; Glucose 95 mg/dl (70-99); Potassium 4.2 mmol/L (3.5-5.1); Sodium 142 mmol/L (135-145); eGFR 44.91
[2023-12-29 07:46] LABS: Glucose - Point of Care 132 mg/dl (70-99)
[2023-12-29] MEDS: NOVOLOG FLEXPEN-MODERATE RESISTANCE SC (07:47)
[2023-12-29] MEDS: LIDOCAINE 4% PATCH 2 PATCH TOPICAL (07:59)
[2023-12-29 08:00] VITALS: BP 129/72
[2023-12-29] MEDS: TYLENOL 1000 MG PO ×3 (08:00→22:02)
[2023-12-29] MEDS: MIRALAX PO (08:00)
[2023-12-29] MEDS: GLUCOTROL 2.5 MG PO (08:01)
[2023-12-29] MEDS: ZYRTEC 10 MG PO (08:01)
[2023-12-29] MEDS: VITAMIN D3 (cholecalciferol) 10 MCG PO ×2 (08:01→20:59)
[2023-12-29] MEDS: OSCAL CAL 500 500 MG PO ×2 (08:01→20:59)
[2023-12-29] MEDS: SENOKOT-S 2 TABLET PO ×2 (08:01→20:59)
[2023-12-29] MEDS: PROZAC 20 MG PO (08:01)
[2023-12-29] MEDS: COREG 25 MG PO ×2 (08:01→20:59)
[2023-12-29] MEDS: ZYLOPRIM 100 MG PO (08:01)
[2023-12-29] MEDS: PROTONIX 40 MG PO (08:01)
[2023-12-29] MEDS: FOLVITE 0.4 MG PO (08:02)
[2023-12-29] MEDS: VITAMIN B-12 1000 MCG PO (08:02)
--- NOTE | 2023-12-29 08:31 | CON.ORTHO ---
Consultation
-
Date/Time Consultation Requested: Jan 10
Date/Time Consultation Performed: Jan 10
Requesting Provider: Do
Performing Provider: Sakshi Thomson
Reason for Consultation: Right hip/Low Back Pain
Consultation - Orthopedics
History
Dictation#[id number]
Requested in consult to this extremely pleasant 83 y/o white female with PMH of iron deficiency anemia, coronary artery disease, AV block status post pacemaker, hyperlipidemia, rheumatoid arthritis, GERD, osteopenia, depression, hypothyroidism, and
type 2 diabetes who presented to the emergency department yesterday for evaluation of right hip pain. She has had this pain intermittently for the past 3 weeks but over the past day it became 'excruciating'. She is unable to bear weight on the
right leg over the past day. She has a history with Dr. Thomson for Right CHRISTIANA 2013 and Left CHRISTIANA 2015. Daughter, Tori Wills, notes that she has recently been dealing with dental infections and has been on antibiotics, therefore they have
some concern for possible PJI. Of note she also has a history with Dr. Gaviria for treatment on her Lsp. She was not constitutional on presentation, and remains that way. Labwork obtained revealed CRP <[address] without obvious fluid around
the right hip prosthesis, therefore aspiration was deferred. She does complain of right sided low back, thigh, and lower leg pain, with some tingling of her great toe
Allergies / Home Medications
Allergy/AdvReac Type Severity Reaction Status Date / Time
DRE Inhibitors Allergy coughing Verified 04/04/23 10:44
�Medication �Instructions �Recorded
levothyroxine 100 mcg tablet 100 mcg PO DAILY Thyroid 04/27/13
cetirizine 10 mg tablet 10 mg PO DAILY ##0 05/20/13
pantoprazole 40 mg tablet,delayed 40 mg PO DAILY Gastrointestinal 03/28/14
release issue
cyanocobalamin (vitamin B-12) 1,000 mcg PO DAILY Supplement 10/17/17
1,000 mcg capsule
aspirin 81 mg chewable tablet 81 mg PO QPM Blood clot 02/22/22
prevention/tx
atorvastatin 80 mg tablet 80 mg PO QPM High cholesterol 02/22/22
carvedilol 25 mg tablet 25 mg PO BID Blood pressure 02/22/22
dulaglutide 0.75 mg/0.5 mL 0.75 mg SC SA Diabetes 02/22/22
subcutaneous pen injector
(Trulicity)
fluoxetine 20 mg capsule 20 mg PO DAILY Mental 02/22/22
Health/Anxiety
fluticasone furoate 100 1 inh inhalation R DAILY 02/22/22
mcg/actuation blister powder for Lung/breathing issues
inhalation (Arnuity Ellipta)
insulin glargine 100 unit/mL (3 14 unit SC QPM Diabetes 02/22/22
mL) subcutaneous pen (Lantus
Solostar U-100 Insulin)
leflunomide 10 mg tablet 10 mg PO SUTUTHSA@1900 Autoimmune 02/22/22
disorder
glipizide 5 mg tablet 2.5 mg PO DAILY 03/19/22
allopurinol 100 mg tablet 100 mg PO DAILY 12/28/23
calcium 500 mg (as 1 tab PO BID 12/28/23
carbonate)-vitamin D3 10 mcg (400
unit) tablet (Calcium 500 + D)
cranberry extract-vitamin C 250 1 cap PO DAILY 12/28/23
mg-60 mg capsule
folic acid 400 mcg tablet 0.4 mg PO DAILY 12/28/23
losartan 100 mg tablet 100 mg PO QPM 12/28/23
naproxen sodium 220 mg tablet 220 mg PO BIDPRN PRN mild pain 12/28/23
(Aleve)
umeclidinium 62.5 mcg-vilanterol 1 inh inhalation R DAILY 12/28/23
25 mcg/actuation powdr for
inhalation (Anoro Ellipta)
Vital Signs / Lab Results
Temp Pulse Resp BP Pulse Ox
98.2 F 74 16 129/72 93
12/28/23 22:52 12/29/23 08:01 12/29/23 07:33 12/29/23 08:01 12/29/23 07:33
12/29/23 04:38
12/29/23 04:38
Assessment / Plan
PE: Afeb. In bed comfortable this AM. Some generalized pain to palpation around her right sided lumbar paraspinals. Right hip with vertical incision over post/lateral thigh. No pain over the hip capsule or laterally. PROM of the right hip is
absolutely painfree. Knee is nontender. Slightly positive SLR. Calf supple, nontender. Ankle dorsi/plantar strength 5/5. EHL strength 5/5. Palpable pulses. DNVI RLE
Diagnostics: Right hip xray and correlating CT reveals total hip prosthesis in good position. Some mild streak artifact. No fluid within the right hip joint noted. No lucency. No evidence of Fx
Lsp xrays reveal severe disogenic changes L2/3 through L5/S1. Severe bilateral facet arthrosis L5/S1
Chronic appearing insufficiency changes T11, T12, L1 with some loss of vertebral height
No acute findings
Impression: Lsp DDD with RLE radiculopathy
Plan: Spoke with the patient and her daughter, Dr. Tori Wills (via phone), at length. Obviously with recent dental issues I share in their concern for PJI. However, given she is not constitutional, has a benign right hip exam, normal
inflammatory markers, and no concerning CT evidence, I also recommend against aspiration of the hip, and have essentially zero concern for Right hip PJI. Her subjective complaints, history, and exam lend itself to a Lumbar radiculopathy. She is
feeling slightly better this AM, however for pain control I have ordered a Medrol Dose [place]. We will order a Lsp MRI to be complete. PT/OT could be helpful during this admission. Hopefully within 24-48 hours she can optimized, pain will be better
controlled, and she can return to [facility] and follow up as an outpatient for further care, if necessary. Will follow up on Lsp results when available. Spoke to attending Hospitalist, Dr. Flynn
Patient was also seen by Dr. Sanford Thomson
[2023-12-29 09:06] LABS: Glycohemoglobin (HgbA1c) 7.8 % (4.0-5.6)
[2023-12-29 09:20] VITALS: BP 126/64; PULSE 74; O2SAT 92
[2023-12-29] MEDS: MEDROL 24 MG PO (09:38)
[2023-12-29 09:58] VITALS: BP 126/64; PULSE 75; O2SAT 94
--- NOTE | 2023-12-29 10:10 | W.PN.HOSP.TC ---
Today's Communication/Plan
-
see A/P
Assessment / Plan
Assessment / Plan
HPI: 83-year-old female with a past medical history of iron deficiency anemia, coronary artery disease, AV block status post pacemaker, hyperlipidemia, rheumatoid arthritis, GERD, osteopenia, depression, hypothyroidism, and type 2 diabetes presented
with a 3-week history of right hip pain.
Patient states that it started hurting only when she stands and walks, and was better initially. 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 She also reports associated right lower back pain. She has a history of total hip replacement 10 years ago. She denies
recent injury or trauma.
A/P:
# Acute localized right lower back pain with sciatica
# History of right hip arthroplasty
Right lower extremity CT negative for acute abnormality of the right hip
CRP less than 5, ESR 30, normal for age
Discussed with orthopedic surgery, inflammatory markers negative, no need for IR consult for aspiration
Suspect lumbar radiculopathy
Lumbar XR reviewed
Check MRI lumbar spine
pain control with Tylenol 1 g 3 times daily, oxycodone as needed, laxatives
Medrol dose pack per ortho
orthopedic on board
PT/OT
# Constipation
Laxatives
# Type 2 diabetes
Continue home glipizide 2.5 mg daily, glargine 14 units every afternoon
Diabetic diet, sliding scale insulin
hemoglobin A1c 7.8%
# Hyperlipidemia
Continue statin
# Hypothyroidism
Continue levothyroxine
# Benign essential hypertension
Continue Coreg, losartan
# GERD
Continue PPI
# Osteoporosis
Continue calcium with vitamin D supplements
DVT prophylaxis�subcu Lovenox
DNR
DW ortho team
Anticipated Discharge: > 48 hours
Subjective/Interval History
-
Date of Service: December 29, 2023
Objective Data
-
Labs:
Laboratory Results
12/29/23
04:38
WBC 5.7
Hgb 11.1 L
Hct 36.0 L
Plt Count 141
Sodium 142
Potassium 4.2
Chloride 107
Carbon Dioxide 25
BUN 23 H
Creatinine 1.2 H
Glucose 95
Calcium 9.2
Vital Signs:
Vital Signs
Temp Pulse Resp BP Pulse Ox
36.5 C 74 17 129/72 93
12/29/23 08:00 12/29/23 08:01 12/29/23 08:00 12/29/23 08:01 12/29/23 08:00
I&O
12/28/23 12/29/23 12/30/23
06:59 06:59 06:59
Intake Total 240 / 240
Balance 240 / 240
Review of Systems
-
Musculoskeletal: Reports Joint Pain (R localized lower back pain)
Physical Exam
-
General: Well Developed, Well Nourished, No Apparent Distress, Comfortable and Conversant; Negative Respiratory Distress
HEENT: Normocephalic, Atraumatic, Nose Appears Normal and Ears Appear Normal; Negative Oxygen
Respiratory: Clear to Auscultation and Non Labored Respirations; Negative Accessory Resp Muscle Use
Cardiac: Regular Rhythm and S1/S2
GI: Soft, Nontender, Nondistended and Normal Bowel Sounds
Skin: Warm and Dry
Neuro: Awake, Alert, Oriented and AO x 3
Psych: Calm and Intact Judgement/Insight
Data Reviewed
-
Diagnostic Radiology: Report Reviewed by me
Labs: Labs Reviewed by me
--- NOTE | 2023-12-29 10:18 | CM ---
Reviewed the chart notes and spoke with the patient at the beside. 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 The patient resides alone in an independent apartment at [facility]. Patient's spouse passed last year. The patient reports no
DME/VN/SNF in the past. The patient confirmed her pharmacy of choice is the [facility]. The patient is waiting for a MRI of her lumbar/sacral area. continues to be available to patient/family and is monitoring medical plan
for needs at discharge.
Plan: Discharge plans will depend on the patient's progress.
[2023-12-29] MEDS: NOVOLOG FLEXPEN-MODERATE RESISTANCE 3 UNITS SC (12:30)
[2023-12-29 12:31] LABS: Glucose - Point of Care 209 mg/dl (70-99)
[2023-12-29 15:00] VITALS: BP 124/82
[2023-12-29 16:54] LABS: Glucose - Point of Care 255 mg/dl (70-99)
[2023-12-29] MEDS: NOVOLOG FLEXPEN-MODERATE RESISTANCE 5 UNITS SC (17:24)
[2023-12-29] MEDS: LIPITOR 80 MG PO (17:25)
[2023-12-29] MEDS: LANTUS 0.14 UNITS SC (17:25)
[2023-12-29] MEDS: LOW STRENGTH ASPIRIN 81 MG PO (17:25)
[2023-12-29] MEDS: COZAAR 100 MG PO (17:25)
[2023-12-29] MEDS: LOVENOX 40 MG SC (17:26)
[2023-12-29 21:50] LABS: Glucose - Point of Care 223 mg/dl (70-99)
[2023-12-29 23:13] VITALS: BP 145/81
[2023-12-30] MEDS: SYNTHROID 100 MCG PO (05:27)
--- NOTE | 2023-12-30 06:52 | W.PN.UPDATE ---
Update Note
Progress Note Update
Patient seen and evaluated by orthopedic surgery on rounds this AM. Patient endorses right sided lumbar pain with weightbearing activities. Denies any groin pain. Signs and symptoms at this time consistent with lumbar radiculopathy. Medrol Dosepak
ordered yesterday. Continue treatment per primary team. Awaiting lumbar spine MRI. We will follow-up on the lumbar spine MRI results when available.
[2023-12-30 07:45] VITALS: BP 123/62
[2023-12-30] MEDS: NOVOLOG FLEXPEN-MODERATE RESISTANCE SC (07:48)
[2023-12-30 07:49] LABS: Glucose - Point of Care 143 mg/dl (70-99)
[2023-12-30] MEDS: OSCAL CAL 500 500 MG PO ×2 (07:49→20:06)
[2023-12-30] MEDS: COREG 25 MG PO ×2 (07:50→20:08)
[2023-12-30] MEDS: MIRALAX PO (07:50)
[2023-12-30] MEDS: VITAMIN B-12 1000 MCG PO (07:50)
[2023-12-30] MEDS: ZYLOPRIM 100 MG PO (07:50)
[2023-12-30] MEDS: PROZAC 20 MG PO (07:50)
[2023-12-30] MEDS: GLUCOTROL 2.5 MG PO (07:50)
[2023-12-30] MEDS: PROTONIX 40 MG PO (07:50)
[2023-12-30] MEDS: TYLENOL 1000 MG PO ×3 (07:50→21:27)
[2023-12-30] MEDS: SENOKOT-S 2 TABLET PO ×2 (07:50→20:07)
[2023-12-30] MEDS: ZYRTEC 10 MG PO (07:50)
[2023-12-30] MEDS: FOLVITE 0.4 MG PO (07:50)
[2023-12-30] MEDS: VITAMIN D3 (cholecalciferol) 10 MCG PO ×2 (07:51→20:06)
[2023-12-30] MEDS: LIDOCAINE 4% PATCH 2 PATCH TOPICAL (07:51)
--- NOTE | 2023-12-30 08:57 | W.PN.HOSP.TC ---
Today's Communication/Plan
-
see A/P
Assessment / Plan
Assessment / Plan
HPI: 83-year-old female with a past medical history of iron deficiency anemia, coronary artery disease, AV block status post pacemaker, hyperlipidemia, rheumatoid arthritis, GERD, osteopenia, depression, hypothyroidism, and type 2 diabetes presented
with a 3-week history of right hip pain.
Patient states that it started hurting only when she stands and walks, and was better initially. 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 She also reports associated right lower back pain. She has a history of total hip replacement 10 years ago. She denies
recent injury or trauma.
A/P:
# Acute localized right lower back pain with sciatica, suspect lumbar radiculopathy
# History of right hip arthroplasty
Right lower extremity CT negative for acute abnormality of the right hip
CRP less than 5, ESR 30, normal for age
Discussed with orthopedic surgery, inflammatory markers negative, no need for IR consult for aspiration
Lumbar XR reviewed
Check MRI lumbar spine
pain control with Tylenol 1 g 3 times daily, oxycodone as needed, laxatives
Started Medrol dose pack per ortho
orthopedic on board
PT/OT: outpatient therapy
# Constipation
Laxatives
# Type 2 diabetes
Continue home glipizide 2.5 mg daily, glargine 14 units every afternoon
Diabetic diet, sliding scale insulin
hemoglobin A1c 7.8%
# Hyperlipidemia
Continue statin
# Hypothyroidism
Continue levothyroxine
# Benign essential hypertension
Continue Coreg, losartan
# GERD
Continue PPI
# Osteoporosis
Continue calcium with vitamin D supplements
DVT prophylaxis�subcu Lovenox
DNR
DW daughter on the phone
Anticipated Discharge: > 48 hours
Subjective/Interval History
-
Date of Service: December 30, 2023
Objective Data
-
Vital Signs:
Vital Signs
Temp Pulse Resp BP Pulse Ox
36.7 C 82 12 123/62 92
12/30/23 07:45 12/30/23 07:50 12/30/23 07:45 12/30/23 07:50 12/30/23 07:45
I&O
12/29/23 12/30/23 12/31/23
06:59 06:59 06:59
Intake Total 240 / 240 1080 / 1080
Balance 240 / 240 1080 / 1080
Review of Systems
-
Musculoskeletal: Reports Joint Pain (R localized lower back pain)
Physical Exam
-
General: Well Developed, Well Nourished, No Apparent Distress, Comfortable and Conversant; Negative Respiratory Distress
HEENT: Normocephalic, Atraumatic, Nose Appears Normal and Ears Appear Normal; Negative Oxygen
Respiratory: Clear to Auscultation and Non Labored Respirations; Negative Accessory Resp Muscle Use
Cardiac: Regular Rhythm and S1/S2
GI: Soft, Nontender, Nondistended and Normal Bowel Sounds
Skin: Warm and Dry
Neuro: Awake, Alert, Oriented and AO x 3
Psych: Calm and Intact Judgement/Insight
Data Reviewed
-
Diagnostic Radiology: Report Reviewed by me
Labs: Labs Reviewed by me
[2023-12-30] MEDS: MEDROL 20 MG PO (09:20)
[2023-12-30 11:00] VITALS: BP 124/65
--- NOTE | 2023-12-30 11:33 | CM ---
Addendum entered by Theresa Schaefer RN 12/30/23 16:02:
IMM reviewed and placed on chart.
Original Note:
Reviewed the chart notes. MRI pending. PT/OT recommending outpatient therapy. CM continues to be available to patient/family and is monitoring medical plan for needs at discharge.
Plan: Discharge to home when medically stable.
[2023-12-30 12:54] LABS: Glucose - Point of Care 257 mg/dl (70-99)
[2023-12-30] MEDS: NOVOLOG FLEXPEN-MODERATE RESISTANCE 5 UNITS SC ×2 (12:56→18:13)
[2023-12-30 15:00] VITALS: BP 144/75
[2023-12-30 16:02] VITALS: BP 140/74; PULSE 91
[2023-12-30 17:08] LABS: Glucose - Point of Care 277 mg/dl (70-99)
[2023-12-30] MEDS: LOVENOX 40 MG SC (18:12)
[2023-12-30] MEDS: LOW STRENGTH ASPIRIN 81 MG PO (18:12)
[2023-12-30] MEDS: COZAAR 100 MG PO (18:12)
[2023-12-30] MEDS: LANTUS 0.14 UNITS SC (18:12)
[2023-12-30] MEDS: LIPITOR 80 MG PO (18:12)
[2023-12-30 21:12] LABS: Glucose - Point of Care 267 mg/dl (70-99)
[2023-12-30 22:42] VITALS: BP 123/77
[2023-12-31] MEDS: SYNTHROID 100 MCG PO (05:11)
[2023-12-31 07:10] VITALS: BP 127/76
--- NOTE | 2023-12-31 07:33 | W.PN.UPDATE ---
Update Note
Progress Note Update
Patient seen and evaluated by orthopedic surgery on rounds this AM. Patient reports her pain and symptoms have improved significantly with the Medrol Dospak. We are awaiting lumbar spine MRI. It sounds like we are awaiting to hear if her pace maker
is compatible with MRI. I did discuss with her this morning, and should her symptoms improve, and if she is stable for d/c, she would be amenable to advanced imaging and follow up on an outpatient basis. Could also consider PM&R consult while
patient admitted. Would recommend PT/OT while patient admitted. Pain control per primary.
[2023-12-31 08:03] LABS: Glucose - Point of Care 151 mg/dl (70-99)
[2023-12-31] MEDS: NOVOLOG FLEXPEN-MODERATE RESISTANCE 1 UNITS SC (08:27)
[2023-12-31] MEDS: ZYRTEC 10 MG PO (08:28)
[2023-12-31] MEDS: FOLVITE 0.4 MG PO (08:28)
[2023-12-31] MEDS: VITAMIN B-12 1000 MCG PO (08:28)
[2023-12-31] MEDS: MEDROL 16 MG PO (08:29)
[2023-12-31] MEDS: COREG 25 MG PO ×2 (08:29→21:32)
[2023-12-31] MEDS: TYLENOL 1000 MG PO ×3 (08:29→21:33)
[2023-12-31] MEDS: OSCAL CAL 500 500 MG PO ×2 (08:29→21:32)
[2023-12-31] MEDS: VITAMIN D3 (cholecalciferol) 10 MCG PO ×2 (08:29→21:32)
[2023-12-31] MEDS: PROZAC 20 MG PO (08:29)
[2023-12-31] MEDS: SENOKOT-S 2 TABLET PO (08:30)
[2023-12-31] MEDS: GLUCOTROL 2.5 MG PO (08:30)
[2023-12-31] MEDS: PROTONIX 40 MG PO (08:30)
[2023-12-31] MEDS: LIDOCAINE 4% PATCH 2 PATCH TOPICAL (08:31)
[2023-12-31] MEDS: MIRALAX PO (08:32)
[2023-12-31] MEDS: ZYLOPRIM 100 MG PO (08:32)
--- NOTE | 2023-12-31 08:53 | W.PN.HOSP.TC ---
Addendum entered and electronically signed by Tiffanie Flynn MD 12/31/23 11:40:
# CKD 3
Original Note:
Today's Communication/Plan
-
see A/P
Assessment / Plan
Assessment / Plan
HPI: 83-year-old female with a past medical history of iron deficiency anemia, coronary artery disease, AV block status post pacemaker, hyperlipidemia, rheumatoid arthritis, GERD, osteopenia, depression, hypothyroidism, and type 2 diabetes presented
with a 3-week history of right hip pain.
Patient states that it started hurting only when she stands and walks, and was better initially. 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 She also reports associated right lower back pain. She has a history of total hip replacement 10 years ago. She denies
recent injury or trauma.
A/P:
# Acute localized right lower back pain with sciatica, suspect lumbar radiculopathy
# History of right hip arthroplasty
Right lower extremity CT negative for acute abnormality of the right hip
CRP less than 5, ESR 30, normal for age
Discussed with orthopedic surgery, inflammatory markers negative, no need for IR consult for aspiration
Lumbar XR reviewed
Check MRI lumbar spine
pain control with Tylenol 1 g 3 times daily, oxycodone as needed, laxatives,
Lidocaine patch to right lower back
Started Medrol dose pack per ortho
orthopedic on board
PT/OT: outpatient therapy
# Constipation
Laxatives
# Type 2 diabetes
Continue home glipizide 2.5 mg daily, glargine 14 units every afternoon
Diabetic diet, sliding scale insulin
hemoglobin A1c 7.8%
# Hyperlipidemia
Continue statin
# Hypothyroidism
Continue levothyroxine
# Benign essential hypertension
Continue Coreg, losartan
# GERD
Continue PPI
# Osteoporosis
Continue calcium with vitamin D supplements
DVT prophylaxis�subcu Lovenox
DNR
DW daughter (vascular surgeon) on the phone 11/12
Anticipated Discharge: 24 - 48 hours
Subjective/Interval History
-
Date of Service: December 31, 2023
Objective Data
-
Vital Signs:
Vital Signs
Temp Pulse Resp BP Pulse Ox
36.5 C 76 16 127/76 97
12/31/23 07:10 12/31/23 08:29 12/31/23 07:10 12/31/23 08:29 12/31/23 07:10
I&O
12/30/23 12/31/23 01/01/24
06:59 06:59 06:59
Intake Total 1080 / 1080 840 / 840
Balance 1080 / 1080 840 / 840
Review of Systems
-
Musculoskeletal: Reports Joint Pain (R localized lower back pain has improved)
Physical Exam
-
General: Well Developed, Well Nourished, No Apparent Distress, Comfortable and Conversant; Negative Respiratory Distress
HEENT: Normocephalic, Atraumatic, Nose Appears Normal and Ears Appear Normal; Negative Oxygen
Respiratory: Clear to Auscultation and Non Labored Respirations; Negative Accessory Resp Muscle Use
Cardiac: Regular Rhythm and S1/S2
GI: Soft, Nontender, Nondistended and Normal Bowel Sounds
Skin: Warm and Dry
Neuro: Awake, Alert, Oriented and AO x 3
Psych: Calm and Intact Judgement/Insight
Data Reviewed
-
Diagnostic Radiology: Report Reviewed by me
Labs: Labs Reviewed by me
--- NOTE | 2023-12-31 09:59 | PN.CDI ---
CDI
- -
CDI:
Physician Documentation Request
Admit Date: 12/28/23 17:13
Dear Doctor Rina,
Please review the following and provide your response in the progress notes.
Clinical Indicators:
- 2022 prior admission with CKD 3
- Current labs:
Laboratory Tests
12/28/23 12/29/23
11:31 04:38
Creatinine 1.1 H 1.2 H
eGFR 49.86 44.91
Please clarify which of the following accurately represents the patient's renal status:
CKD 3
STEF (please provide baseline)
Other (please specify)
Criteria for STEF*
1 Increase in serum creatinine by > or = to 0.3 mg/dL (> or = to 26.5 micromol/L) within 48 hours, OR
2 Increase in serum creatinine to > or = to 1.5 times baseline, which is known or presumed to have occurred within 7 days, OR
3 Urine volume < 0.5 nL/kg/hour for six hours
Stages of Chronic Kidney Disease*
Level Description GFR
G1 Normal or High >90
G2 Mildly decreased 60-89
G3a Mildly to moderately decreased 45-59
G3b Moderately to severely decreased 30-44
G4 Severely decreased 15-29
G5 Kidney failure <15
Use of terms such as suspected, likely, concern for, or probable (associated with a specific diagnosis that is being evaluated, monitored, or treated as if it exists) are acceptable and can be coded in the inpatient setting, when documented at the
time of discharge.
Thank you,
Leo Gravey RN
CDI Specialist
Please use your independent medical judgment in providing your response.
*Source: Kidney Disease: Improving Global Outcomes (KDIGO) 2012
--- NOTE | 2023-12-31 11:07 | PTCARENOTE ---
Addendum entered by Katie Cunningham RN 12/31/23 11:53:
pt returned to room at this time without incident.
Original Note:
pt to MRI via stretcher accompanied by an RN. all jewelry removed.
[2023-12-31 12:08] LABS: Glucose - Point of Care 250 mg/dl (70-99)
[2023-12-31] MEDS: NOVOLOG FLEXPEN-MODERATE RESISTANCE 5 UNITS SC ×2 (12:17→17:18)
--- NOTE | 2023-12-31 15:06 | CM ---
Reviewed the chart notes. MRI completed. PT/OT recommending outpatient therapy. CM continues to be available to patient/family and is monitoring medical plan for needs at discharge.
Plan: Discharge to home when medically stable.
[2023-12-31 16:57] LABS: Glucose - Point of Care 276 mg/dl (70-99)
[2023-12-31] MEDS: LANTUS 0.14 UNITS SC (17:19)
[2023-12-31] MEDS: LOW STRENGTH ASPIRIN 81 MG PO (17:19)
[2023-12-31] MEDS: LIPITOR 80 MG PO (17:19)
[2023-12-31] MEDS: COZAAR 100 MG PO (17:21)
[2023-12-31] MEDS: LOVENOX 40 MG SC (17:22)
[2023-12-31] MEDS: SENOKOT-S PO (21:32)
[2023-12-31 21:49] LABS: Glucose - Point of Care 186 mg/dl (70-99)
[2023-12-31 23:50] VITALS: BP 125/65
[2024-01-01] MEDS: SYNTHROID 100 MCG PO (05:20)
--- NOTE | 2024-01-01 07:37 | W.PN.UPDATE ---
Update Note
Progress Note Update
Patient reports that she feels significantly better this morning. The tingling in the right great toe has nearly resolved. No other neurologic complaints. Exam has no low back pain, right hip range of motion reveals flexion 90 degrees, internal
rotation 10 degrees, external rotation 30 degrees all without pain. Distal neurovascular was intact. Right hip/pelvis x-rays show stable bilateral total hip arthroplasty without fracture or dislocation. Lumbosacral spine has severe degenerative
disc disease with scoliotic curve. MRI lumbosacral spine show stable chronic compression fractures at T11, T12 and L1 vertebral bodies. Chronic severe multilevel degenerative changes. Chronic multi level bilateral neuroforaminal stenosis most
pronounced on the right at L1-L2 and on the left at L3-L4 and L4-L5 levels. She is experiencing lumbar radiculopathy which has improved while on the Medrol Dosepak. Suggest she complete tapering steroid, begin physical therapy and follow-up with
one of our commissioning specialist. Orthopedics to sign off for now.
[2024-01-01 08:40] VITALS: BP 127/61
[2024-01-01 08:41] LABS: Glucose - Point of Care 110 mg/dl (70-99)
[2024-01-01] MEDS: NOVOLOG FLEXPEN-MODERATE RESISTANCE SC (08:43)
[2024-01-01] MEDS: COREG 25 MG PO (08:44)
[2024-01-01] MEDS: GLUCOTROL 2.5 MG PO (08:45)
[2024-01-01] MEDS: SENOKOT-S PO (08:46)
[2024-01-01] MEDS: TYLENOL 1000 MG PO (08:46)
[2024-01-01] MEDS: PROZAC 20 MG PO (08:47)
[2024-01-01] MEDS: LIDOCAINE 4% PATCH TOPICAL (08:47)
[2024-01-01] MEDS: MIRALAX PO (08:47)
[2024-01-01] MEDS: PROTONIX 40 MG PO (08:47)
[2024-01-01] MEDS: VITAMIN D3 (cholecalciferol) 10 MCG PO (08:47)
[2024-01-01] MEDS: OSCAL CAL 500 500 MG PO (08:47)
[2024-01-01] MEDS: FOLVITE 0.4 MG PO (08:47)
[2024-01-01] MEDS: ZYLOPRIM 100 MG PO (08:48)
[2024-01-01] MEDS: VITAMIN B-12 1000 MCG PO (08:48)
[2024-01-01] MEDS: ZYRTEC 10 MG PO (08:48)
[2024-01-01] MEDS: MEDROL 12 MG PO (09:25)
--- NOTE | 2024-01-01 10:11 | W.PN.HOSP.TC ---
Addendum entered and electronically signed by Tiffanie Flynn MD 01/01/24 14:02:
total DC time 36 min
Original Note:
Today's Communication/Plan
-
see A/P
Assessment / Plan
Assessment / Plan
HPI: 83-year-old female with a past medical history of iron deficiency anemia, coronary artery disease, AV block status post pacemaker, hyperlipidemia, rheumatoid arthritis, GERD, osteopenia, depression, hypothyroidism, and type 2 diabetes presented
with a 3-week history of right hip pain.
Patient states that it started hurting only when she stands and walks, and was better initially. 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 She also reports associated right lower back pain. She has a history of total hip replacement 10 years ago. She denies
recent injury or trauma.
A/P:
# Acute localized right lower back pain with sciatica, suspect lumbar radiculopathy
# History of right hip arthroplasty
Right lower extremity CT negative for acute abnormality of the right hip
CRP less than 5, ESR 30, normal for age
Discussed with orthopedic surgery, inflammatory markers negative, no need for IR consult for aspiration
Lumbar XR reviewed
MRI lumbar spine unrevealing: Stable chronic compression fractures of the T11, T12, and L1 vertebral bodies; Chronic degenerative changes of the lumbar spine, similar compared to the lumbar spine MRI from 05/15/2023. No evidence for high-grade spinal
canal stenosis. Varying degrees of chronic multilevel bilateral neuroforaminal stenosis, overall most pronounced on the right at L1-L2 and on the left at the L3-L4 and L4-L5 levels.
Cont pain control with Tylenol 1 g 3 times daily, oxycodone as needed, Lidocaine patch to right lower back
laxatives while on oxycodone
Cont Medrol dose pack outpt
orthopedic on board
PT/OT: outpatient therapy
# Constipation
Laxatives
# Type 2 diabetes
Continue home glipizide 2.5 mg daily, glargine 14 units every afternoon
Diabetic diet, sliding scale insulin
hemoglobin A1c 7.8%
# Hyperlipidemia
Continue statin
# Hypothyroidism
Continue levothyroxine
# Benign essential hypertension
Continue Coreg, losartan
# GERD
Continue PPI
# Osteoporosis
Continue calcium with vitamin D supplements
DVT prophylaxis�subcu Lovenox
DNR
Dispo: outpt therapy
DW daughter (vascular surgeon) on the phone 12/31
Anticipated Discharge: Today
Subjective/Interval History
-
Date of Service: January 01, 2024
Objective Data
-
Vital Signs:
Vital Signs
Temp Pulse Resp BP Pulse Ox
36.6 C 77 15 126/71 98
01/01/24 08:40 01/01/24 08:44 01/01/24 08:40 01/01/24 08:44 01/01/24 08:40
I&O
12/31/23 01/01/24 01/02/24
06:59 06:59 06:59
Intake Total 840 / 840 480 / 480
Balance 840 / 840 480 / 480
Review of Systems
-
Musculoskeletal: Reports Joint Pain (lower back pain has improved )
Physical Exam
-
General: Well Developed, Well Nourished, No Apparent Distress, Comfortable and Conversant; Negative Respiratory Distress
HEENT: Normocephalic, Atraumatic, Nose Appears Normal and Ears Appear Normal; Negative Oxygen
Respiratory: Clear to Auscultation and Non Labored Respirations; Negative Accessory Resp Muscle Use
Cardiac: Regular Rhythm and S1/S2
GI: Soft, Nontender, Nondistended and Normal Bowel Sounds
Skin: Warm and Dry
Neuro: Awake, Alert, Oriented and AO x 3
Psych: Calm and Intact Judgement/Insight
Data Reviewed
-
MRI: Report Reviewed by me and Discussed with Family
Labs: Labs Reviewed by me
--- NOTE | 2024-01-01 11:21 | CM ---
Addendum entered by Lana Landon RN 01/01/24 11:36:
[facility] and will set up PT and Pharm[facility]istant car will pick her up at [facility] at 2;30 today. RN , pt notified on above .
Original Note:
MD entered order for discharge.
Spoke with pt she said she was ready for dc to her personal care at [facility].
She agrees with IMM .
She said she can get PT back at her [facility].
Yue at [facility] [phone] said pt accepted back today . She said report from RN not necessary. She requested PT script be faxed.She said PT will be set up for pt.
PT script faxed to [phone] as instructed by Yue
Pt said she did not have a ride back to her home.
Yue said she would call back with [place] transportation van [phone].
PLAN Return to [facility] Personal care with PT set up by [facility]
[2024-01-01 11:30] VITALS: BP 124/58
--- NOTE | 2024-01-01 13:31 | W.DCSUMMARY ---
Discharge Summary
Discharge Data
Date of Admission: 12/28/23
Date of Discharge: 01/01/24
-
Pending Results: No
Hospital Course
Principal Diagnosis:
Acute localized right lower back pain with sciatica, suspect lumbar radiculopathy
Chronic Diagnoses:�
iron deficiency anemia
coronary artery disease,
AV block status post pacemaker,
rheumatoid arthritis,
Type 2 diabetes, A1c 7.8%
Hyperlipidemia
Hypothyroidism on Levothyroxine
Benign essential hypertension, on Coreg, losartan
GERD
Osteoporosis
Consultations:�
Orthopedic
Procedures:�
None
Clinical course:�
This is a 83-year-old female with past medical history as stated above, who presented with 3-week history of right hip pain.
Problem 1:
Acute localized right lower back pain with sciatica, suspect lumbar radiculopathy.
Her right lower extremity CT, lumbar X ray and Lumbar MRI were negative for acute abnormality.
MRI lumbar spine showed: stable chronic compression fractures of the T11, T12, and L1 vertebral bodies; Chronic degenerative changes of the lumbar spine, similar compared to the lumbar spine MRI from 05/15/2023. No evidence for high-grade spinal
canal stenosis. Varying degrees of chronic multilevel bilateral neuroforaminal stenosis, overall most pronounced on the right at L1-L2 and on the left at the L3-L4 and L4-L5 levels.
Her CRP was less than 5, ESR 30 (normal for age) which ruled out acute inflammatory conditions.
She can continue Tylenol 1 g 3 times daily for 4 more days for pain control, and Lidocaine patch to right lower back.
She was started with Medrol Dosepak while in hospital and can continue for 2 more days following discharge.
She can follow-up with outpatient PT OT.
As for the rest of her medical problems, they were stable during her hospital stay.
Discharge Plan
-
Patient Disposition: Home with Home Care
Discharge Diagnosis/Procedures: Acute localized right lower back pain with sciatica, suspect lumbar radiculopathy
Condition: Fair
Diet: As tolerated
Activity: As tolerated
Driving Restrictions: As prior to admission
Referrals:
Abdoulaye Mireles MD [Family Provider] - in less than 1 week
Additional Discharge Medication Instructions: take methylprednisone 8 mg on 01/01, then 4 mg on 01/02, then stop
Prescriptions:
New
methylprednisolone 4 mg Tablet
8 mg PO ONCE Qty: 2 0RF
Rx Instructions:
8 mg 01/01
methylprednisolone 4 mg Tablet
4 mg PO ONCE Qty: 1 0RF
Rx Instructions:
4 mg 01/02
lidocaine 4 % Adhesive Patch,Medicated
2 patch topical DAILY Qty: 10 0RF
Rx Instructions:
R lower back
acetaminophen [Tylenol Extra Strength] 500 mg Tablet
1,000 mg PO TID 4 Days Qty: 24 0RF
Continued
levothyroxine 100 MCG tablet
100 mcg PO DAILY
cetirizine 10 MG tablet
10 mg PO DAILY Qty: 0 0RF
pantoprazole 40 MG tablet,delayed release (DR/EC)
40 mg PO DAILY
cyanocobalamin (vitamin B-12) 1,000 MCG capsule
1,000 mcg PO DAILY
atorvastatin 80 mg tablet
80 mg PO QPM
carvedilol 25 mg tablet
25 mg PO BID
leflunomide 10 mg tablet
10 mg PO SUTUTHSA@1900
aspirin 81 mg tablet,chewable
81 mg PO QPM
insulin glargine [Lantus Solostar U-100 Insulin] 100 unit/mL (3 mL) insulin pen
14 unit SC QPM
Arnuity Ellipta 100 mcg/actuation blister with device
1 inh INHALATION R DAILY
Trulicity 0.75 mg/0.5 mL pen injector
0.75 mg SC SA
fluoxetine 20 MG capsule
20 mg PO DAILY
glipizide 5 mg Tablet
2.5 mg PO DAILY
allopurinol 100 mg Tablet
100 mg PO DAILY
folic acid 400 mcg Tablet
0.4 mg PO DAILY
naproxen sodium [Aleve] 220 mg Tablet
220 mg PO BIDPRN PRN (Reason: mild pain)
losartan 100 mg Tablet
100 mg PO QPM
calcium carbonate-vitamin D3 [Calcium 500 + D] 500 mg-10 mcg (400 unit) Tablet
1 tab PO BID
cranberry extract-vitamin C 250-60 mg Capsule
1 cap PO DAILY
Anoro Ellipta 62.5-25 mcg/actuation Blister With Device
1 inh INHALATION R DAILY
Discharge Orders:
Discharge Patient (As Directed); Ordered 01/01/24
Ordered By: Tiffanie Flynn
Discharge Date and Time
Print Language: [id number]
== END 2024-01-01 14:24 | disposition home or self-care (01) | DRG 552 ==
LOC: 2 SOUTH 17:13
PROVIDERS: Physician Assistant; ADMITTING PHYSICIAN Family Medicine; ATTENDING PHYSICIAN Internal Medicine; EMERGENCY PHYSICIAN Student in an Organized Health Care Education/Training Program; FAMILY PHYSICIAN Internal Medicine Geriatric Medicine; OTHER PHYSICIAN Specialist
DX: M54.16 Radiculopathy, lumbar region (principal); K59.00 Constipation, unspecified; E11.9 Type 2 diabetes mellitus without complications; E78.00 Pure hypercholesterolemia, unspecified; E03.9 Hypothyroidism, unspecified; K21.9 Gastro-esophageal reflux disease without esophagitis; M81.0 Age-related osteoporosis without current pathological fracture; Z66 Do not resuscitate; I25.10 Atherosclerotic heart disease of native coronary artery without angina pectoris; I44.30 Unspecified atrioventricular block; Z95.0 Presence of cardiac pacemaker; M06.9 Rheumatoid arthritis, unspecified; N18.30 Chronic kidney disease, stage 3 unspecified; I12.9 Hypertensive chronic kidney disease with stage 1 through stage 4 chronic kidney disease, or unspecified chronic kidney disease
CPT/HCPCS: 72110; 72148; 73502; 73701; 80048; 80053; 82962; 83036; 85025; 85652; 86140; 96374; 97116; 97161; 97166; 97530; 99285; Q9967

== ENCOUNTER → 2024-01-09 09:29 | Outpatient (REF) | payer MEDICARE, OTHER, SELFPAY ==
[2024-01-09 10:01] LABS: % Basophils 0.5 % (0-2); % Eosinophils 7.2 % (0-6); % Immature Granulocytes 0.6 % (0-0.5); % Lymphocytes 24.2 % (20.5-51.1); % Monocytes 10.8 % (1.7-9.3); % Neutrophils 56.7 % (42.2-75.2); Absolute Eosinophils 0.5 10^3/uL (0-0.7); Absolute Lymphocytes 1.5 10^3/uL (1.2-3.4); Absolute Monocytes 0.7 10^3/uL (0.1-0.6); Absolute Neutrophils 3.6 10^3/uL (1.4-6.5); Hematocrit 35.4 % (37.0-47.0); Hemoglobin 11.5 g/dL (12.0-16.0); Mean Corp Hgb Conc. 32.5 g/dL (33.0-37.0); Mean Corpuscular Hgb 29.9 pg (27.0-31.0); Mean Corpuscular Volume 92.2 fL (81.0-99.0); Mean Platelet Volume 11.8 fL (7.4-10.4); Nucleated Red Blood Cells % 0 %; Platelet Count 151 10^3/uL (130-400); Red Blood Cell Count 3.84 10^6/uL (4.20-5.40); Red Cell Dist. Width 15.5 % (11.5-14.5); White Blood Cell Count 6.4 10^3/uL (4.8-10.8)
[2024-01-09 10:03] LABS: INR 0.89; PT 12.3 Sec (11.4-14.6)
[2024-01-09 10:04] LABS: APTT 27.2 Sec (23.4-35.0)
[2024-01-09 10:56] LABS: ALT (SGPT) 20 U/L (0-35); AST (SGOT) 24 U/L (14-36); Albumin 3.7 g/dl (3.5-5.0); Alkaline Phosphatase 81 U/L (38-126); Blood Urea Nitrogen 30 mg/dl (7-17); Calcium 9.3 mg/dl (8.4-10.2); Carbon Dioxide 23 mmol/L (22-30); Chloride 105 mmol/L (98-107); Glucose 131 mg/dl (70-99); Potassium 4.6 mmol/L (3.5-5.1); Sodium 139 mmol/L (135-145); Total Bilirubin 0.5 mg/dl (0.2-1.3)
== END ==
LOC: OLABPV 09:29
PROVIDERS: ATTENDING PHYSICIAN Internal Medicine Rheumatology; FAMILY PHYSICIAN Nurse Practitioner Adult Health; OTHER PHYSICIAN Oral & Maxillofacial Surgery
DX: M87.9 Osteonecrosis, unspecified (principal); D64.9 Anemia, unspecified; E55.9 Vitamin D deficiency, unspecified; M06.00 Rheumatoid arthritis without rheumatoid factor, unspecified site; M10.9 Gout, unspecified; M19.93 Secondary osteoarthritis, unspecified site; M79.641 Pain in right hand; M81.0 Age-related osteoporosis without current pathological fracture; N25.81 Secondary hyperparathyroidism of renal origin; Z79.899 Other long term (current) drug therapy
CPT/HCPCS: 36415; 80053; 84550; 85025; 85610; 85730; 86140

== ENCOUNTER → 2024-01-12 12:03 | Outpatient (REF) | payer MEDICARE, OTHER, SELFPAY | LOC: RAD 12:03 | PROVIDERS: ATTENDING PHYSICIAN Oral & Maxillofacial Surgery; FAMILY PHYSICIAN Internal Medicine Geriatric Medicine | DX: M87.9 Osteonecrosis, unspecified (principal) | CPT/HCPCS: 71046; 93005 ==

== ENCOUNTER → 2024-06-15 10:57 | Outpatient (REF) | payer MEDICARE, OTHER, SELFPAY ==
[2024-06-15 12:11] LABS: % Basophils 0.5 % (0-2); % Eosinophils 4.4 % (0-6); % Immature Granulocytes 0.4 % (0-0.5); % Lymphocytes 25.5 % (20.5-51.1); % Monocytes 9.2 % (1.7-9.3); Absolute Eosinophils 0.3 10^3/uL (0-0.7); Absolute Lymphocytes 1.4 10^3/uL (1.2-3.4); Absolute Monocytes 0.5 10^3/uL (0.1-0.6); Absolute Neutrophils 3.4 10^3/uL (1.4-6.5); Hematocrit 38.4 % (37.0-47.0); Hemoglobin 12.2 g/dL (12.0-16.0); Mean Corp Hgb Conc. 31.8 g/dL (33.0-37.0); Mean Corpuscular Hgb 31.9 pg (27.0-31.0); Mean Corpuscular Volume 100.5 fL (81.0-99.0); Mean Platelet Volume 11.4 fL (7.4-10.4); Nucleated Red Blood Cells % 0 %; Platelet Count 166 10^3/uL (130-400); Red Blood Cell Count 3.82 10^6/uL (4.20-5.40); Red Cell Dist. Width 13.7 % (11.5-14.5); White Blood Cell Count 5.6 10^3/uL (4.8-10.8)
[2024-06-15 12:27] LABS: ALT (SGPT) 17 U/L (0-35); AST (SGOT) 22 U/L (14-36); Albumin 3.6 g/dl (3.5-5.0); Alkaline Phosphatase 71 U/L (38-126); Blood Urea Nitrogen 21 mg/dl (7-17); Calcium 9.1 mg/dl (8.4-10.2); Carbon Dioxide 23 mmol/L (22-30); Chloride 110 mmol/L (98-107); Glucose 98 mg/dl (70-99); HDL Cholesterol 60 mg/dl; Iron 96 ug/dl (37-170); LDL Cholesterol, Calculated 73 mg/dl; Potassium 4.9 mmol/L (3.5-5.1); Sodium 140 mmol/L (135-145); Total Bilirubin 0.6 mg/dl (0.2-1.3); Total Cholesterol 146 mg/dl (50-199); Total Protein 5.7 g/dl (6.3-8.2); Triglyceride 68 mg/dl (10-149); Uric Acid 4.3 mg/dl (2.5-6.2); Very Low Density Lipoprotein 13 mg/dl (0-30); eGFR 44.91
[2024-06-15 12:33] LABS: C-Reactive Protein < 5.00 mg/L (0.0-10.00)
[2024-06-15 12:37] LABS: Percent Saturation 25 % (20-50); Total Iron Binding Capacity 371 ug/dl (265-497)
[2024-06-15 12:40] LABS: Urine Albumin 1+ (Neg - Trace); Urine Bilirubin Negative (Negative); Urine Character Clear (Clear); Urine Color Yellow; Urine Glucose Negative (Negative); Urine Ketone Negative (Negative); Urine Leukocyte 3+ (Negative); Urine Nitrite Positive (Negative); Urine Occult Blood Negative (Negative); Urine Urobilinogen Negative (Neg - 1+)
[2024-06-15 12:50] LABS: Free T4 1.44 ng/dl (0.78-2.19); Vitamin D, 25-OH*** 42.9 ng/mL (30-80)
[2024-06-15 13:03] LABS: TSH 0.33 uIU/ml (0.47-4.68)
[2024-06-15 13:30] LABS: Glycohemoglobin (HgbA1c) 6.8 % (4.0-5.6)
[2024-06-15 13:50] LABS: Urine Amorphous Seen
[2024-06-15 13:52] LABS: Urine White Cell 40-50 /HPF (0-5)
[2024-06-15 13:53] LABS: Urine Bacteria Many (Negative); Urine Red Blood Cell 0-2 /HPF (0-2)
== END ==
LOC: OLABPV 10:57
PROVIDERS: ATTENDING PHYSICIAN Internal Medicine Rheumatology; FAMILY PHYSICIAN Internal Medicine Geriatric Medicine
DX: D64.9 Anemia, unspecified (principal); E55.9 Vitamin D deficiency, unspecified; M06.00 Rheumatoid arthritis without rheumatoid factor, unspecified site; M10.9 Gout, unspecified; M19.93 Secondary osteoarthritis, unspecified site; M79.641 Pain in right hand; M81.0 Age-related osteoporosis without current pathological fracture; N25.81 Secondary hyperparathyroidism of renal origin; Z13.820 Encounter for screening for osteoporosis; Z79.899 Other long term (current) drug therapy; E78.5 Hyperlipidemia, unspecified; N18.31 Chronic kidney disease, stage 3a; M06.042 Rheumatoid arthritis without rheumatoid factor, left hand; E03.9 Hypothyroidism, unspecified; F33.41 Major depressive disorder, recurrent, in partial remission; E11.65 Type 2 diabetes mellitus with hyperglycemia; E61.1 Iron deficiency; Z79.4 Long term (current) use of insulin; K21.9 Gastro-esophageal reflux disease without esophagitis; I25.10 Atherosclerotic heart disease of native coronary artery without angina pectoris; Z13.89 Encounter for screening for other disorder; I35.0 Nonrheumatic aortic (valve) stenosis
CPT/HCPCS: 36415; 80053; 80061; 81003; 81015; 82306; 83036; 83540; 83550; 84439; 84443; 84550; 84681; 85025; 86140

== ENCOUNTER → 2024-10-22 10:57 | Outpatient (REF) | payer MEDICARE, OTHER, SELFPAY | LOC: RCS 10:57 | PROVIDERS: ATTENDING PHYSICIAN Student in an Organized Health Care Education/Training Program; FAMILY PHYSICIAN Internal Medicine Geriatric Medicine | DX: I35.0 Nonrheumatic aortic (valve) stenosis (principal) | CPT/HCPCS: 93306 ==

== ENCOUNTER → 2024-11-24 12:04 | Outpatient (REF) | payer MEDICARE, OTHER, SELFPAY ==
[2024-11-24 13:18] LABS: Hematocrit 37.0 % (37.0-47.0); Hemoglobin 11.7 g/dL (12.0-16.0); Mean Corp Hgb Conc. 31.6 g/dL (33.0-37.0); Mean Corpuscular Volume 99.2 fL (81.0-99.0); Nucleated Red Blood Cells % 0 %; Platelet Count 148 10^3/uL (130-400); Red Cell Dist. Width 13.3 % (11.5-14.5)
[2024-11-24 13:24] LABS: Urine Character Slightly Cloudy (Clear)
[2024-11-24 13:26] LABS: ALT (SGPT) 16 U/L (0-35); AST (SGOT) 24 U/L (14-36); Albumin 3.5 g/dl (3.5-5.0); Alkaline Phosphatase 76 U/L (38-126); Blood Urea Nitrogen 18 mg/dl (7-17); Calcium 9.1 mg/dl (8.4-10.2); Carbon Dioxide 26 mmol/L (22-30); Chloride 109 mmol/L (98-107); Glucose 124 mg/dl (70-99); HDL Cholesterol 50 mg/dl; Iron 75 ug/dl (37-170); LDL Cholesterol, Calculated 56 mg/dl; Potassium 4.4 mmol/L (3.5-5.1); Sodium 139 mmol/L (135-145); Total Protein 5.6 g/dl (6.3-8.2); Very Low Density Lipoprotein 25 mg/dl (0-30); eGFR 44.64
[2024-11-24 13:31] LABS: Urine Red Blood Cell 0-2 /HPF (0-2); Urine Squamous Cell 21-25 /LPF (Few)
[2024-11-24 13:36] LABS: Total Iron Binding Capacity 357 ug/dl (265-497)
[2024-11-24 13:44] LABS: Vitamin D, 25-OH*** 26.6 ng/mL (30-80)
[2024-11-24 13:53] LABS: Glycohemoglobin (HgbA1c) 7.3 % (4.0-5.6)
[2024-11-24 13:58] LABS: TSH 0.62 uIU/ml (0.47-4.68)
[2024-11-24 14:04] LABS: Ferritin 19.3 ng/ml (11.1-264.0)
== END ==
LOC: OLABPV 12:04
PROVIDERS: ATTENDING PHYSICIAN Internal Medicine Geriatric Medicine
DX: E78.00 Pure hypercholesterolemia, unspecified (principal); E03.9 Hypothyroidism, unspecified; E11.65 Type 2 diabetes mellitus with hyperglycemia; E61.1 Iron deficiency; N18.31 Chronic kidney disease, stage 3a; K21.9 Gastro-esophageal reflux disease without esophagitis; D50.0 Iron deficiency anemia secondary to blood loss (chronic); E66.9 Obesity, unspecified; Z79.899 Other long term (current) drug therapy; E55.9 Vitamin D deficiency, unspecified
CPT/HCPCS: 36415; 80053; 80061; 81003; 81015; 82306; 82728; 83036; 83540; 83550; 84439; 84443; 85025

== ENCOUNTER → 2025-01-04 08:51 | Outpatient (REF) | payer MEDICARE, OTHER, SELFPAY | LOC: RSP 08:51 | PROVIDERS: ATTENDING PHYSICIAN Internal Medicine Geriatric Medicine | DX: R06.09 Other forms of dyspnea (principal); Z00.00 Encounter for general adult medical examination without abnormal findings; E78.5 Hyperlipidemia, unspecified; N18.31 Chronic kidney disease, stage 3a; M06.042 Rheumatoid arthritis without rheumatoid factor, left hand; E03.9 Hypothyroidism, unspecified; F33.41 Major depressive disorder, recurrent, in partial remission; E11.65 Type 2 diabetes mellitus with hyperglycemia; E61.1 Iron deficiency; M81.0 Age-related osteoporosis without current pathological fracture; Z79.4 Long term (current) use of insulin; K21.9 Gastro-esophageal reflux disease without esophagitis; I25.10 Atherosclerotic heart disease of native coronary artery without angina pectoris; Z13.89 Encounter for screening for other disorder; I35.0 Nonrheumatic aortic (valve) stenosis; E11.40 Type 2 diabetes mellitus with diabetic neuropathy, unspecified | CPT/HCPCS: 71046; 88738; 94010; 94727; 94729 ==

== ENCOUNTER → 2025-01-07 08:36 | Outpatient (REF) | payer MEDICARE, OTHER, SELFPAY | LOC: HWRCS 08:36 | PROVIDERS: ATTENDING PHYSICIAN Internal Medicine Geriatric Medicine | DX: E78.5 Hyperlipidemia, unspecified (principal); N18.31 Chronic kidney disease, stage 3a; M06.042 Rheumatoid arthritis without rheumatoid factor, left hand; R06.09 Other forms of dyspnea | CPT/HCPCS: 78452; 93017; A9500; J2785 ==